=== PATIENT | female | born 1960 | race Caucasian/White ===

== ENCOUNTER 2023-07-01 10:11 | Emergency (ER) | payer BC ==
--- OUTSIDE RECORDS SUMMARY | 2023-07-01 10:16 | XMS REPORT | Continuity of Care Document ---
Author Name Unknown Address [address] [facility]. [address] [place] [id number] [facility] Address [address] [facility] 1 [address] [place] [address] Care Team Providers Care Machinery Dismantler Name Role Phone ANDREIA NINA Primary Care Physician Unav ailable JHOAN LYNN Attending Clinician Unavailable NAIDA TRAYLOR Attending Clinician Unavailable Jhoan Lynn MD Attending Clinician [phone] Gramm RESIDENTIAL PROPERTY TAX APPRAISERIndu Chino Attending Clinician [phone] INDU GALE Attending Clinician Unavailable LEÓN FALLON Attending Clinician Unavailable Doctor Unassigned, Halls Attending Clinician Jimy Nolan MD Attending Clinician + [phone] JIMY ARENAS Attending Clinician Andreia Villalpando Attending Clinician + [phone] ANDREIA NINA Attending Clinician Unavail able LOYDA LUX Attending Clinician Unavailable LOYDA LUX Attending Clinician Unavailable Loyda Lux DO Attending Clinician [phone] Pob, Adc Lab Main Attending Clinician Miguel Villeda MD Attending Clinician [phone] Pc, Adc Echo Room 1 - Attending Clinician MIGUEL Shields Attending Clinician Unavailable , Adc Lab Attending Clinician Unavailable Nurse, [facility] Attending Clinician Unava iltracie Unknown, Attending Attending Clinician Unavailab JIMY Rios Admitting Clinician ANDREIA Torres Admitting Clinician Unavail able Payers Payer Name Policy Type Policy Number Effective Date Expirati on Date Source [facility] [id number] 2017 00:00:00 Problems Condition Name Condition Details Condition Category Status Onset Date Resolution Date Last Treatment Date Treating Clinician Comments Source No known active problems No known active problems Disease [facility] Allergies, Adverse Reactions, Alerts Allergy Name Allergy Type Status Severity Reaction(s) Onset Date Inactive Date Treating Clinician Comments Source GATIFLOX ACIN DRUG INGREDI Active Rash 07-25 00:00: 00 [facility] Gatiflox acin Propensi ty to adverse reaction s Active Rash 07-25 00:00: 00 [facility] Social History Social Habit Start Date Stop Date Quantity Comments Source Exposure to SARS-CoV-2 (event) Not sure [facility] Sex Assigned At [facility] Tobacco use and exposure 2019-11-18 00:00:00 2019-11-18 00:00:00 Never used [facility] History SDOH Alcohol Frequency 2019-11-18 00:00:00 2019-11-18 00:00:00 3 [facility] History SDOH Alcohol Std Drinks 2019-11-18 00:00:00 2019-11-18 00:00:00 99 [facility] History SDOH Alcohol Binge 2019-11-18 00:00:00 2019-11-18 00:00:00 99 [facility] Alcohol intake 2019-11-18 00:00:00 2019-11-18 00:00:00 Current drinker of alcohol (finding) [facility] Smoking Status Start Date Stop Date Source Unknown if ever smoked [facility] Never smoker [facility] Medications Ordered Medication Name Filled Medication Name Start Date Stop Date Current Medication? Ordering Clinician Indication Dosage Frequency Signature (SIG) Comments Components Source iohexol (OMNIPAQUE 350 BULK-150 mL) injection 130 mL 11-04 18:30: 00 11-04 18:15 :00 No 130mL 130 mL, Intravenou s, ONCE, 1 dose, Anna 11/05/19 at 1330, Routine [facility] sincalide (KINEVAC) injection 1.4 mcg 09-09 14:15: 00 09-09 14:15 :00 No 1.4ug 1.4 mcg, IV Push, ONCE, 1 dose, Anna 09/10/19 at 0915, Routine [facility] tc 99m-mebrofe brent injection 9.5 millicurie 09-09 13:15: 00 09-09 13:00 :00 No 9.5mCi 9.5 millicurie , Intravenou s, ONCE, 1 dose, Anna 09/10/19 at 0815, Routine [facility] TRULANCE 3 mg Tab 08-31 00:00: 00 Yes [facility] TRULANCE 3 mg Tab 08-31 00:00: 00 Yes [facility] TRULANCE 3 mg Tab 08-31 00:00: 00 Yes [facility] TRULANCE 3 mg Tab 08-31 00:00: 00 Yes [facility] TRULANCE 3 mg Tab 08-31 00:00: 00 Yes [facility] contrast previously administere d 0 mL 08-12 15:15: 00 08-12 15:02 :00 No Intravenou s, ONCE, 1 dose, Anna 08/13/19 at 1015, Routine [facility] iohexol (OMNIPAQUE 350 BULK-150 mL) injection 120 mL 08-12 15:15: 00 08-12 15:02 :00 No 120mL 120 mL, Intravenou s, ONCE, 1 dose, Anna 08/13/19 at 1015, Routine [facility] No known medications No [facility] No known medications No [facility] No known medications No [facility] No known medications No [facility] No known medications No [facility] No known medications No [facility] No known medications No [facility] No known medications No [facility] No known medications No [facility] No known medications No [facility] No known medications No [facility] No known medications No [facility] No known medications No [facility] No known medications No [facility] No known medications No Un mo [facility] No known medications No [facility] No known medications No [facility] No known medications No Un mo [facility] No known medications No Un mo [facility] No known medications No Un mo [facility] No known medications No Un mo [facility] No known medications No Un mo [facility] No known medications No Un mo [facility] No known medications No Un mo [facility] No known medications No Un [facility] No known medications No Un mo [facility]y [facility] No known medications No Un mo [facility]y [facility] No known medications No Un mo [facility]y [facility] No known medications No Un mo [facility]y [facility] Vital Signs Vital Name Observation Time Observation Value Comments S ource Systolic blood pressure 2019-11-18 20:05:00 137 mm[Hg] [facility] Diastolic blood pressure 2019-11-18 20:05:00 76 mm[Hg] [facility] Heart rate 2019-11-18 20:05:00 68 /min [facility] Respiratory rate 2019-11-18 20:05:00 14 /min [facility] Body height 2019-11-18 20:05:00 167.6 cm [facility] Body weight 2019-11-18 20:05:00 74.481 kg [facility] BMI 2019-11-18 20:05:00 26.50 kg/m2 [facility] Oxygen saturation in Arterial blood by Pulse oximetry 2019-11-18 20:05:00 95 /min [facility] Systolic blood pressure 2019-10-06 15:43:00 143 mm[Hg] [facility] Diastolic blood pressure 2019-10-06 15:43:00 77 mm[Hg] [facility] Heart rate 2019-10-06 15:43:00 77 /min [facility] Body temperature 2019-10-06 15:38:00 36.83 Christine [facility] Body weight 2019-10-06 15:38:00 73.936 kg [facility] BMI 2019-10-06 15:38:00 26.31 kg/m2 [facility] Systolic blood pressure 2019-08-13 21:18:00 134 mm[Hg] [facility] Diastolic blood pressure 2019-08-13 21:18:00 70 mm[Hg] [facility] Heart rate 2019-08-13 21:18:00 62 /min [facility] Body height 2019-08-13 21:18:00 167.6 cm [facility] Body weight 2019-08-13 21:18:00 73.936 kg [facility] BMI 2019-08-13 21:18:00 26.31 kg/m2 [facility] Systolic blood pressure 2018-11-15 16:18:00 128 mm[Hg] [facility] Diastolic blood pressure 2018-11-15 16:18:00 82 mm[Hg] [facility] Heart rate 2018-11-15 16:18:00 96 /min [facility] Body temperature 2018-11-15 16:18:00 37.22 Christine [facility] Respiratory rate 2018-11-15 16:18:00 17 /min [facility] Body height 2018-11-15 16:18:00 167.6 cm [facility] Body weight 2018-11-15 16:18:00 70.478 kg [facility] BMI 2018-11-15 16:18:00 25.08 kg/m2 [facility] Oxygen saturation in Arterial blood by Pulse oximetry 2018-11-15 16:18:00 97 /min [facility] Procedures Procedure Date / Time Performed Performing Clinician Source CT ABDOMEN PELVIS W WO CONTRAST 2019-11-05 18:27:14 Indu Gale [facility] HB CREATININE BLOOD 2019-11-05 18:12:00 Indu Gale [facility] POCT URINALYSIS AUTO 2019-10-06 15:42:00 Indu Gale [facility] REFERRAL- REQUEST/RESPONSE 2019-09-23 05:01:00 Doctor Unassigned, Halls [facility] NM HEPATOBILIARY W INTERVENTION 2019-09-10 14:51:00 Jimy Arenas [facility] NM HEPATOBILIARY W INTERVENTION 2019-09-10 14:51:00 Jimy Arenas [facility] EXTERNAL PROVIDER - ADC REFERRAL 2019-09-09 05:01:00 Doctor Unassigned, Halls [facility] BI ULTRASOUND BREAST LIMITED BILATERAL 2019-09-08 18:56:32 Andreia Nina [facility] BI DIAGNOSTIC TOMOSYNTHESIS BILATERAL 2019-09-08 18:39:24 Andreia Nina [facility] AUTHORIZATION FOR RELEASE OF PHI 2019-09-06 05:01:00 Doctor Unassigned, Halls [facility] XR KNEE 3 VW RIGHT 2019-08-26 19:54:54 [facility] US HEAD NECK 2019-08-26 19:49:08 Andreia Nina [facility] XR CHEST 2 VW 2019-08-26 19:10:00 Andreia Nina [facility] EXTERNAL PROVIDER - ADC REFERRAL 2019-08-24 05:01:00 Doctor Unassigned, [place]s [facility] AUTHORIZATION FOR RELEASE OF PHI 2019-08-21 05:01:00 Doctor Unassigned, [place]s [facility] REFERRAL- REQUEST/RESPONSE 2019-08-19 05:01:00 Doctor Unassigned, Halls [facility] CT ABDOMEN PELVIS W WO CONTRAST 2019-08-13 15:10:01 Andreia Nina [facility] CT THORAX W CONTRAST 2019-08-13 15:07:49 Andreia Nina [facility] EXTERNAL PROVIDER - ADC REFERRAL 2019-08-10 05:01:00 Doctor Unassigned, Halls [facility] AMYLASE 2019-08-04 19:05:00 Andreia Nina [facility] LIPASE 2019-08-04 19:05:00 Andreia Nina [facility] FERRITIN SERUM 2019-08-04 19:05:00 Andreia Nina [facility] BILI UNCONJUGATED/BILI CONJUG 2019-08-04 19:05:00 Andreia Nina [facility] FREE T4 2019-08-04 19:05:00 Andreia Nina [facility] THYROID STIMULATING HORMONE 2019-08-04 19:05:00 Andreia Nina [facility] COMP. METABOLIC PANEL (71021) 2019-08-04 19:05:00 Andreia Nina [facility] SEDIMENTATION RATE 2019-08-04 19:05:00 Andreia Ninadell [facility] CBC WITH DIFFERENTIAL 2019-08-04 19:05:00 [facility] GLYCOSYLATED HEMOGLOBIN (A1C) 2019-08-04 19:05:00 Andreia Nina [facility] D-DIMER 2019-08-04 19:05:00 Andreia Nina [facility] URINALYSIS 2019-08-04 19:05:00 Andreia Nina [facility] US ABDOMEN COMPLETE 2019-08-04 18:41:10 Andreia Nina [facility] XR CHEST 2 VW 2019-08-04 18:04:46 Andreia Nina [facility] XR CERVICAL SPINE 2 2019-08-04 18:04:46 Joel Nina [facility] PATIENT FINANCIAL POLICY 2018-11-15 15:52:52 Doctor Unassigned, Halls [facility] Encounters Start Date/Time End Date/Time Encounter Type Admission Type Attending Clinicians Care Facility Care Department Encounter ID Source 2020-08-10 09:00:00 2020-08-10 09:00:00 Outpatient JHOAN LYNN [facility] [id number] [facility] 2020-08-05 08:30:00 2020-08-05 08:30:00 Outpatient JHOAN PALMER [facility] [id number] [facility] 2019-12-24 13:30:00 2019-12-24 13:30:00 [id number] 2019-11-18 14:32:07 2019-11-18 16:01:25 Office Visit [facility] 1..840.114 350.1.13.10 4.2.7.2.[id number] [facility] 2019-11-18 15:00:00 2019-11-18 15:00:00 Outpatient R LEAH [facility] [id number] [facility] 2019-11-06 08:00:00 2019-11-06 08:00:00 [id number] [facility] 2019-11-05 12:43:09 2019-11-05 23:59:00 Hospital Encounter Indu Gale [facility] 1.2.840.114 350.1.13.10 4.2.7.2.[id number] [facility] 2019-11-05 00:00:00 2019-11-05 00:00:00 Outpatient R INDU GALE [facility] [id number] [facility] 2019-11-03 15:40:00 2019-11-03 15:40:00 Outpatient R LEÓN FALLON [facility] [id number] [facility] 2019-10-16 00:00:00 2019-10-16 00:00:00 Outpatient R INDU GALE [facility] [id number] [facility] 2019-10-08 08:20:00 2019-10-08 08:20:00 Outpatient R LEÓN FALLON [facility] [id number] [facility] 2019-10-06 10:11:34 2019-10-06 10:45:00 Office Visit Indu Gale [facility] 1.0.114 350.1.13.10 4.2.7.2.[id number] [facility] 2019-10-06 10:00:00 2019-10-06 10:00:00 Outpatient R INDU GALE [facility] [id number] [facility] 2019-09-23 00:00:00 2019-09-23 00:00:00 Orders Only Doctor Unassigned, Halls [facility] 1..114 350.1.13.10 4.2.7.2.[id number] [facility] 2019-09-16 14:00:00 2019-09-16 14:00:00 Outpatient R SHARA GALEELA [facility] [id number] [facility] 2019-09-10 07:43:00 2019-09-10 23:59:00 Hospital Encounter Jimy Tobias [facility] 1..114 350.1.13.10 4.2.7.2.[id number] [facility] 2019-09-10 07:42:49 2019-09-10 07:42:00 Outpatient R JIMY TOBIAS [facility] [id number] [facility] 2019-09-10 07:42:00 2019-09-10 07:42:00 Hospital Encounter Jimy Tobias [facility] 1..114 350.1.13.10 4.2.7.2.[id number] [facility] 2019-09-09 00:00:00 2019-09-09 00:00:00 Orders Only Doctor Unassigned, Halls [facility] 1.20.114 350.1.13.10 4.2.7.2.[id number] [facility] 2019-09-08 12:51:00 2019-09-08 23:59:00 Hospital Encounter Andreia Nina [facility] 1.2.840.114 350.1.13.10 4.2.7.2.[id number] [facility] 2019-09-08 12:50:25 2019-09-08 12:50:00 Outpatient R ANDREIA NINA [facility] [id number] [facility] 2019-09-08 12:50:00 2019-09-08 12:50:00 Hospital Encounter Andreia Nina [facility] 1.2840.114 350.1.13.10 4.2.7.2.[id number] [facility] 2019-09-06 00:00:00 2019-09-06 00:00:00 Orders Only Doctor Unassigned, Halls [facility] 1.2.840.114 350.1.13.10 4.2.7.2.[id number] [facility] 2019-08-28 14:00:00 2019-08-28 14:00:00 Outpatient R LOYDA LUX SHIPAPetra [facility] [id number] [facility] 2019-08-28 08:21:19 2019-08-28 08:41:19 Telemedici ne Visit Loyda Lux [facility] Professio [facility] Building 1.2840.114 350.1.13.10 4.2.7.2.[id number] [facility] 2019-08-26 13:50:00 2019-08-26 23:59:00 [facility] 1.2840.114 350.1.13.10 4.2.7.2.[id number] [facility] 2019-08-26 13:55:36 2019-08-26 14:10:36 Case Maker Visit Pob, Adc Lab Main Andreia Nina [facility] Building 1.2.840.114 350.1.13.10 4.2.7.2.[id number] [facility] 2019-08-26 13:49:10 2019-08-26 13:49:00 Outpatient R ANDREIA NINA [facility] [id number] [facility] 2019-08-26 13:49:00 2019-08-26 13:49:00 Hospital Encounter Andreia Nina [facility] 1.2.840.114 350.1.13.10 4.2.7.2.[id number] [facility] 2019-08-26 13:49:00 2019-08-26 13:49:00 Hospital Encounter Andreia Nina [facility] 1.2.840.114 350.1.13.10 4.2.7.2.[id number] [facility] 2019-08-24 00:00:00 2019-08-24 00:00:00 Orders Only Doctor Unassigned, Halls [facility] 1.2.840.114 350.1.13.10 4.2.7.2.[id number] [facility] 2019-08-21 00:00:00 2019-08-21 00:00:00 Telephone Miguel Fung [facility] Building 1.2.840.114 350.1.13.10 4.2.7.2.[id number] [facility] 2019-08-21 00:00:00 2019-08-21 00:00:00 Orders Only Doctor Unassigned, Halls [facility] 1.2.840.114 350.1.13.10 4.2.7.2.[id number] [facility] 2019-08-19 00:00:00 2019-08-19 00:00:00 Orders Only Doctor Unassigned, Halls [facility] 1.2.840.114 350.1.13.10 4.2.7.2.[id number] [facility] 2019-08-13 07:52:00 2019-08-13 23:59:00 Hospital En[facility] 1.2.840.114 350.1.13.10 4.2.7.2.[id number] [facility] 2019-08-13 17:01:06 2019-08-13 17:16:06 Case Maker Visit Pob, Adc Lab Main [facility] 1.2.840.114 350.1.13.10 4.2.7.2.[id number] [facility] 2019-08-13 15:50:04 2019-08-13 16:43:46 Laboratory Only Pc, Ad[facility] 1.2840.114 350.1.13.10 4.2.7.2.[id number] [facility] 2019-08-13 07:50:52 2019-08-13 07:51:00 Outpatient R ANDREIA NINA [facility] [id number] [facility] 2019-08-13 07:50:00 2019-08-13 07:51:00 Hospital Encounter Andreia Nina [facility] 1.2.840.114 350.1.13.10 4.2.7.2.[id number] [facility] 2019-08-11 00:00:00 2019-08-11 00:00:00 [facility] 1.2.840.114 350.1.13.10 4.2.7.2.[id number] [facility] 2019-08-10 00:00:00 2019-08-10 00:00:00 Orders Only Doctor Unassigned, Halls [facility] 1.2.840.114 350.1.13.10 4.2.7.2.[id number] [facility] 2019-08-05 13:20:00 2019-08-05 13:20:00 [id number] 2019-08-05 09:25:23 2019-08-05 09:45:23 [facility] 1.2.840.114 350.1.13.10 4.2.7.2.[id number] [facility] 2019-08-04 12:42:00 2019-08-04 14:05:00 Hospital Encounter Andreia Nina [facility] 1.2.840.114 350.1.13.10 4.2.7.2.[id number] [facility] 2019-08-04 12:35:59 2019-08-04 12:50:59 Case Maker Visit 1, Adc Lab Andreia Nina [facility] 1.2.840.114 350.1.13.10 4.2.7.2.[id number] [facility] 2019-08-04 12:35:36 2019-08-04 12:39:00 Outpatient R ANDREIA NINA [facility] [id number] [facility] 2019-08-04 12:35:00 2019-08-04 12:39:00 Hospital Encounter Andreia Nina [facility] 1.2.840.114 350.1.13.10 4.2.7.2.[id number] [facility] 2018-11-15 11:14:44 2018-11-15 11:29:44 Nurse Visit Nurse, [facility] Unknown, Attending [facility] Pearl 1.2840.114 350.1.13.10 4.2.7.2.[id number] [facility] 2018-11-15 00:00:00 2018-11-15 00:00:00 Orders Only Doctor Unassigned, Halls [facility] 1.2.840.114 350.1.13.10 4.2.7.2.[id number] [facility] Results Test Description Test Time Test Comments Results Result Co [facility]ments [facility] [id number] 18:36:05CT Abdomen and Pelvis without and with intravenous contrast (CT urogramprotocol). CLINICAL HISTORY:Hematuria, known cause. DOSE: Up-to-date CT equipment and radiation dose reduction techniques wereemployed. CTDIvol: 7.74+7.70 mGy. DLP: 382+392 mGy-cm. TECHNIQUE : Contiguous axial imaging from the level of the lung basesthrough the pubic symphysis were performed initially without contrast andsubsequently after the uncomplicated administration of Omnipaque contrastmaterial (CT urogram protocol).Coronal and sagittal reconstructions wereobtained. Auto mA and/or iterative reconstruction were used to reduceradiation dose. FINDINGS: Comparison has been made with 08/13/2019 CT studies. Lower lungs: Clear. Liver, Gallbladder and Spleen: Liver is 14 cm and spleen is 9.5 x 3.8 cm.No focal lesions detected in the liver or in the spleen. No calcifiedgallstones. Normal size biliary ducts and the pancreatic duct. Peritoneum: ?No free air or free fluid. No lymphadenopathy. Pancreas and Adrenals: ?Unremarkable pancreas and adrenal glands. Kidneys and Ureters: ?No visible calculi in the renal collecting systems. No hydroureter or hydronephrosis.Deformity in the lateral cortex at interpolar left kidney could be due toremote ischemia. 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 Milddilatation of the left kidney's collecting system and ureters noted withoutany apparent cause in this examination. Vessels: Minimal atherosclerosis in the abdominal aorta. Retroperitoneum: No abnormal fluid or lymphadenopathy. Bowel: No acute findings. Appendix is not visualized, however, no signs ofacute appendicitis detected. Bladder and Reproductive Organs: S/P hysterectomy. No adnexal masses orfluid in the cul-de-sac. Urinary bladder appears normal. Bones: Prominent Schmorl's node in the lower plate of L4, shallow Schmorl'snode inthe upper plate of L5. Mild lower lumbar facet arthritis andbilateral sacroiliac joint arthritis. Soft tissues: Unremarkable. CONCLUSION:1. No kidney stones or kidney lesions. No lesions in the urinary bladder.2. Cortical scar in the left kidney could be due to remote ischemia. Milddilatation of the left kidney's collecting system and left ureters notedwithout any apparent cause in this examination.3. S/P hysterectomy. [facility], Radiant Results Inft User - 11/05/2019 1:37 PM CDTCT Abdomen and Pelvis without and with intravenous contrast (CT urogramprotocol).CLINICAL HISTORY: Hematuria, known cause.DOSE: Up-to-date CT equipment and radiation dose reduction techniques wereemployed. CTDIvol: 7.74+7 .70 mGy. DLP: 382+392 mGy-cm.TECHNIQUE : Contiguous axial imaging from the level of the lung basesthrough the pubic symphysis were performed initially without contrast andsubsequently after the uncomplicated administration of Omnipaque contrastmaterial (CT urogram protocol). Coronal and sagittal reconstructions wereobtained. Auto mA and/or iterative reconstruction were used to reduceradiation dose.FINDINGS: Comparison has been made with 08/13/2019 CT studies.Lower lungs: Clear.Liver, Gallbladderand Spleen: Liver is 14 cm and spleen is 9.5 x 3.8 cm.No focal lesions detected in the liver or in the spleen. No calcifiedgallstones. Normal size biliary ducts and the pancreatic duct.Peritoneum: Nofree air or free fluid. No lymphadenopathy.Pancreas and Adrenals: Unremarkable pancreas and adrenalglands.Kidneys and Ureters: No visible calculi in the renal collecting systems. No hydroureter or hy dronephrosis.Deformity in the lateral cortex at interpolar left kidney could be due toremote ischemia. 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 Milddilatation of the left kidney's collecting system and ureters noted withou anali apparent cause in this examination. Vessels: Minimal atherosclerosis in the abdominal aorta.Retroperitoneum: No abnormal fluid or lymphadenopathy.Bowel: No acute findings. Appendix is not visualized, however, no signs ofacute appendicitis detected.Bladder and Reproductive Organs: S/P hysterectomy. No adnexal masses orfluid in the cul-de-sac. Urinary bladder appears normal.Bones: Prominent Schmorl's node in the lower plate of L4, shallow Schmorl'snode in the upper plate of L5. Mild lower lumbar facet arthritis andbilateral sacroiliac joint arthritis.Soft tissues: Unremarkable.CONCLUSION:1. No kidney stones or kidney lesions. No lesions in the urinary bladder.2. Cortical scar in the left kidney could be due to remote ischemia. Milddilatation of the left kidney's collecting system and left ureters notedwithout any apparent cause in this examination.3. S/P hysterectomy.[facility] URINALYSIS, [id number] 15:43:00* Test Item Value Reference Range Interpretation Comme nts POCT U SP GRAV (test code = 3255) 1.020 mg/dl 1.005-1.025 POCT PH U (test code = 3254) 7.0 mg/dl 5-8 POCT U LEUK EST (test code = 3263) Trace Negative - Negative POCT U NIT (test code = 3262) Negative Negative - Negati ve POCT U PROT (test code = 3259) Negative Negative - Negative POCT U GLU (test code = 3256) Negative Negative - Negati ve POCT U KETONE (test code = 3258) Negative Negative - Negative POCT U UROBILI (test code = 3260) 1.0 mg/dl 0.2-1 POCT U BILI (test code = 3261) Negative Negative - Negative POCT U BLD (test code = 3257) small Negative - Negati ve POCT U COLOR (test code = 3266) yellow POCT U APPEAR (test code = 3267) clear Lab Interpretation (test cod e = 73571-1) [facility] [id number] 15:43:00 * Test Item Value Reference Range Interpretation Comme nts POCT U SP GRAV (test code = 3255) 1.020 mg/dl 1.005-1.025 POCT PH U (test code = 3254) 7.0 mg/dl 5-8 POCT U LEUK EST (test code = 3263) Trace Negative - Negative POCT U NIT (test code = 3262) Negative Negative - Negati ve POCT U PROT (test code = 3259) Negative Negative - Negative POCT U GLU (test code = 3256) Negative Negative - Negati ve POCT U KETONE (test code = 3258) Negative Negative - Negative POCT U UROBILI (test code = 3260) 1.0 mg/dl 0.2-1 POCT U BILI (test code = 3261) Negative Negative - Negative POCT U BLD (test code = 3257) small Negative - Negati ve POCT U COLOR (test code = 3266) yellow POCT U APPEAR (test code = 3267) clear Lab Interpretation (test cod e = [id number]) Abnormal [facility] HEPATOBILIARY W [id number] 17:16:19HISTORY: Recurrent abdominal/Epigastric pain. Rule out gallbladderdysfunction or cystic duct dyskinesia. TECHNIQUE: Routine hepatobiliary scan is obtained with 9.5 mCi oftechnetium 99m mebrofenin. CCK study is completed with slow intravenousinjection of 1.4 mcg of CCK. FINDINGS: Flow images and planar images of the liver appear normal. Bileducts begin to visualize within 7 minutes, duodenum within 9 minutes. Gallbladder is very poorly visualized even up to delayed imaging at 90minutes. Gallbladder contraction is hyper normal with CCK stimulation and GB EF is86 %. Patient complained of no painprior to or during CCK study. CONCLUSIONS: 1.Delayed and very poor visualization of the gallbladder. 2.GBEF with CCK stimulation is 86%. 3.Patient indicated no clinical symptoms prior to beginning ofthe HIDAscan or during CCK infusion. [facility], Radiant Results Inft User - 09/10/2019 12:17 PM CDTHISTORY: Recurrent abdominal/Epigastric pain. Rule out gallbladderdysfunction or cystic duct dyskinesia.TECHNIQUE: Routine hepatobiliary scan is obtained with 9.5 mCi oftechnetium 99m mebrofenin. CCK studyis completed with slow intravenousinjection of 1.4 mcg of CCK.FINDINGS: Flow images and planar images of the liver appear normal. Bileducts begin to visualize within 7 minutes, duodenum within 9 minutes.Gallbladder is very poorly visualized even up to delayed imaging at 90minutes. Gallbladder contraction is hyper normal with CCK stimulation and GB EF is86 %. Patient complained of no pain prior ge during CCK study.CONCLUSIONS: 1.Delayed and very poor visualization of the gallbladder. 2.GBEF with CCK stimulation is 86%. 3.Patient indicated no clinical symptoms prior to beginning of the HIDAscan or during CCK infusion.[facility] DIAGNOSTIC TOMOSYNTHESIS [id number] 19:36:34 Examination:BI DIAGNOSTIC TOMOSYNTHESIS BILATERAL History:Patient is 58 year old and is seen for: ?Abnormal findings on diagnostic imaging of breast patient states last mammogram was done over 15 yrsago in [facility] . Computer-aided detection (CAD) utilized. Comparisons : None available Findings:The breasts have scattered areas of fibroglandular density. LeftThere is a focal asymmetry seen in thelower inner quadrant of the left breast at 4 o'clock in the middle depth, 5.2 cm from the nipple. RightThere is a focal asymmetry seen in the upper inner quadrant of the right breast at 1 o'clock in the middle depth, 5.5 cm from the nipple. Impression:Prominent asymmetrical density in both breasts.Ultrasound study of upper inner RIGHT and lower inner LEFT breast recommended. Recommendation:Ultrasound - RightUltrasound - Left BI-RADS Category: Left: 0 - Incomplete: Needs Additional Imaging EvaluationRight: 0 - Incomplete: Needs Additional Imaging EvaluationOverall: 0 - Incomplete: Needs Additional Imaging EvaluationUnMer[facility] ULTRASOUND BREAST LIMITED [id number] 19:29:50Examination:BI ULTRASOUND BREAST LIMITED BILATERAL History:Patient is 58 year old and is seen for: ?Abnormal findings on diagnostic imaging of breast ?patient states last mammogram was done over 15 yrs ago in [facility] . ? Comparisons : None available HISTORY: ?Abnormal mammogram. TECHNIQUE: Upper-outer quadrant of the left breast as well as upper inner quadrant of the right breast were evaluated in radial/antiradial/sagittal/coronal planes both by the technologist and by me. Female technologistwas present in the room during all imaging evaluations. FINDINGS: Asymmetrical accumulation of dense fibroglandular breast tissue was detected in the upper inner right breast and lower outer left breast No discrete solid or cystic mass detected by myself or by the technologist evaluation. CONCLUSIONS: No masses detected. Images were reviewed and findings were discussed with the patient. Annual bilateral mammography evaluation is appropriate. ACR classification: Category II.Recommendation:Annualmammographic follow-up - Bilateral ? BI-RADS Category: Both 2 [facility] [id number] 20:17:59Multiple bilateral solid nodules measuring up to 1.0 cm in the left sidewith multiple foci of calcification consistent with TI-RADS 4, requiringannual follow based on ACR TI-RADS Guidelines. --------- ACR TI- RADS recommendations* ?TR5 (?7 points) -FNA if >/= ?1cm, follow-up if 0.5 -0.9 cm every yearfor 5 years* ?TR4 (4-6 points) -FNA if >/= 1.5cm, follow-up if 1 - 1.4 cm in 1, 2, 3and 5 years* ?TR3 (3 points)-FNA if >/= 2.5cm, follow-up if 1.5 -2.4 cm in 1, 3 and 5years* ?TR2 (2 points) & TR1 (0 points) -No FNAor follow- up Preliminary Report Dictated by Resident: Prem Ruff MD., have reviewed this study and agree with the abovereport.US HEAD NECKTHYROID ULTRASOUND ACR TI-RADS INDICATION: Nontoxic single thyroid nodule Received faxed orders for Thyroid ultrasound COMPARISON: None TECHNIQUE: Ultrasound examination of the thyroid and adjacent soft tissueswas performed. FINDINGS: The thyroid gland is slightly enlarged with homogeneous echotexture andmildly increased color Doppler flow.The isthmus measures 0.2 cm. The right thyroid lobe measures 5.0 x 1.7 x 2.1 cm (9.5 mL). ?The left thyroid lobe measures 4.8 x 1.4 x 1.3 cm (5.0 mL). ? Estimated total number of nodules >/= 1cm: 2 . Number of spongiform nodules >/= 2cm not described below (TR1): 0.Number of mixed cystic and solid nodules >/= 1.5cm not described below(TR2): 0 . Nodule#: 1* ?Maximum size: 1.1 cm.* ?Location: Mid - Right thyroid lobe .* ?Composition: Solid/almost completely solid (2) .* ?Echogenicity: Hyperechoic (1) .* ?Shape: Not taller than wide (0) .* ?Margins: Smooth (0) .* ?Echogenic foci: None(0) . * ?ACR TI- RADS total points: 3 .* ?ACR TI-RADS risk category: TR 3 (3 points) .* ?ACR TI-RADSrecommendation: No further follow-up. Nodule#: 2* ?Maximum size: 0.8 cm* ?Location: Lower - Right thyroid lobe* ?Composition: Solid/almost completely solid (2)* ?Echogenicity: Hypoechoic (2) .* ?Shape: Not taller than wide (0)* ?Margins: Ill defined (0)* ?Echogenic foci: None (0) * ?ACR TI-RADS total points: 4 ? * ?ACR TI-RADS risk category: TR 4 (4-6 points)* ?ACR TI-RADS recommendation: No further follow-up. Nodule#: 3* ?Maximum size: 1.0 cm* ?Location: Upper - Left thyroid lobe* ?Composition: Solid/almost completely solid (2)* ?Echogenicity: Isoechoic (1) .* ?Shape: Not taller than wide (0)* ?Margins: Ill defined (0)* ?Echogenic foci: Punctate echogenic foci (3) * ?ACR TI-RADS total points: 6 ? * ?ACR TI-RADS risk category: TR 4 (4-6 points)* ?ACR TI-RADS recommendation: Follow-up ultrasound in 1 year. Nodule#: 4* ?Maximum size: 1.0 cm* ?Location: Lower - Left thyroid lobe* ?Composition: Solid/almost completely solid (2)* ?Echogenicity: Hypoechoic (2) .* ?Shape: Not taller than wide (0)* ?Margins: Ill defined (0)* ?Echogenic foci: None (0) * ?ACR TI-RADS total points: 4 ? * ?ACR TI-RADS risk category: TR 4 (4-6 points)* ?ACR TI-RADS recommendation: Follow-up ultrasound in 1 year. Additional bilateral cystic subcentimeter nodules are seen likelyrepresenting colloid cysts. LYMPH NODES: Bilateral morphologically normal lymph nodes are notedmeasuring up to 1.0 cm in long axis on the right side and 1.7 cm in longaxis on the left side. [facility], Radiant Results Inft User - 08/26/2019 3:19 PM CDTUS HEAD NECKTHYROID ULTRASOUND ACR TI-RADSINDICATION: Nontoxic single thyroid nodule Received faxed orders for Thyroid ultrasound COMPARISON: NoneTECHNIQUE: Ultrasound examination of the thyroid and adjacent soft tissueswas performed.FINDINGS:The thyroid gland is slightly enlarged withhomogeneous echotexture andmildly increased color Doppler flow.The isthmus measures 0.2 cm. The right thyroid lobe measures 5.0 x 1.7 x 2.1 cm (9.5 mL). The left thyroid lobe measures 4.8 x 1.4 x 1.3cm (5.0 mL). Estimated total number of nodules >/= 1cm: 2 . Number of spongiform nodules >/= 2cm not described below (TR1): 0.Number of mixed cystic and solid nodules >/= 1.5cm not describedbelow(TR2): 0 .Nodule#: 1* Maximum size: 1.1 cm.* Location: Mid - Right thyroid lobe .* Composition: Solid/almost completely solid (2) .* Echogenicity: Hyperechoic (1) .* Shape: Not taller than wide (0) .* Margins: Smooth (0) .* Echogenic foci: None (0) .* ACR TI-RADS total points: 3 .* ACR TI-RADSrisk category: TR 3 (3 points) .* ACR TI-RADS recommendation: No further follow-up.Nodule#: 2* Maximum size: 0.8 cm* Location: Lower - Right thyroid lobe* Composition: Solid/almost completely solid (2)* Echogenicity: Hypoechoic (2) .* Shape: Not taller than wide (0)* Margins: Ill defined (0)* Echogenic foci: None (0)* ACR TI-RADS total points: 4 * ACR TI-RADS risk category: TR 4 (4-6 points)* ACR TI-RADS recommendation: No further follow-up.Nodule#: 3* Maximum size: 1.0 cm* Location: Upper - Left thyroid lobe* Composition: Solid/almost completely solid (2)* Echogenicity: Isoechoic (1) .* Shape: Not taller than wide (0)* Margins: Ill defined (0)* Echogenic foci: Punctate echogenic foci (3)*ACR TI-RADS total points: 6 * ACR TI-RADS risk category: TR 4 (4-6 points)* ACR TI-RADS recommendation: Follow-up ultrasound in 1 year.Nodule#: 4* Maximum size: 1.0 cm* Location: Lower - Left thyroidlobe* Composition: Solid/almost completely solid (2)* Echogenicity: Hypoechoic (2) .* Shape: Not taller than wide (0)* Margins: Ill defined (0)* Echogenic foci: None (0)* ACR TI-RADS total points: 4* ACR TI-RADS risk category: TR 4 (4-6 points)* ACR TI-RADS recommendation: Follow-up ultrasound in1 year.Additional bilateral cystic subcentimeter nodules are seen likelyrepresenting colloid cysts.LYMPH NODES: Bilateral morphologically normal lymph nodes are notedmeasuring up to 1.0 cm in long axis on the right side and 1.7 cm in longaxis on the left side.IMPRESSIONMultiple bilateral solid nodules measuring up to 1.0 cm in the left sidewith multiple foci of calcification consistent with TI-RADS 4, requiringannual follow based on ACR TI-RADS Guidelines. ACR TI-RADS recommendations* TR5 (?7 points) -FNA if >/=1cm, follow-up if 0.5 -0.9 cm every yearfor 5 years* TR4 (4-6 points) -FNA if >/= 1.5cm, follow-up if 1 -1.4 cm in 1, 2, 3and 5 years* TR3 (3 points)-FNA if >/= 2.5cm, follow-up if 1.5 -2.4 cm in 1, 3 and 5years* TR2 (2 points) & TR1 (0 points) -No FNA or follow-upPreliminary Report Dictated by Resident: Prem Galan MD., have reviewed this study and agree with the abovereport.[facility]XR [facility] 3 [facility] RIGHT 2019-08-26 20:11:56Mild osteoarthrosis EXAM: Right knee 3 views HISTORY: Effusion of knee, unspecified laterality spoke with armand she specified right knee ?Received faxed orders for knee xray ?.spoke with physician nina she specified right knee TECHNIQUE:AP, lateral, oblique view of the right knee is obtained. FINDINGS:No acute fracture or dislocation is seen. Minimal narrowing of themedial and patellofemoral joint is seen. No bone lesion is seen. Softtissues are normal. No suprapatellar joint effusion is suspected. [facility], Radiant Results Inft User - 08/26/2019 3:13 PM CDTEXAM: Right knee 3 viewsHISTORY: Effusion of knee, unspecified laterality spoke with armand she specified right knee Received faxed orders for knee xray .spoke with physician nina she specified right knee TECHNIQUE:AP, lateral, oblique view of the right knee is obtained.FINDINGS:No acute fracture or dislocation is seen. Minimal narrowing of themedial and patellofemoral joint is seen. No bone lesion is seen. Softtissues are normal. No suprapatellar joint effusion is suspected.IMPRESSIONMild osteoarthrosisUnCorpus Christi Medical Center Bay AreaXR CHEST 2 [id number] 20:10:51No acute cardiopulmonary disease. CHEST 2 VIEWS: HISTORY: Multiple lung nodules Received faxed orders for chest 2 views; TECHNIQUE:: ?PA and lateral views of the chest are obtained. COMPARISON: October 04, 2019 FINDINGS: The lungs are hyperinflated but clear. The heart size andmediastinal silhouette are normal. No pleural effusion or pneumothorax isseen. [facility], Radiant Results Inft User - 08/26/2019 3:11 PM CDTCHEST 2 VIEWS:HISTORY: Multiple lung nodules Received faxed orders for chest 2 views;TECHNIQUE:: PA and lateral views of the chest are obtained.COMPARISON: October 04, 2019FINDINGS: The lungs are hyperinflated but clear. The heart size andmediastinal silhouette are normal. No pleural effusion or pneumothorax isseen.IMPRESSIONNo acute cardiopulmonary disease.[facility] CenterCT ABDOMEN PELVIS W WO [id number] 15:24:54CT Abdomen and Pelvis with oral and with intravenous contrast. CLINICAL HISTORY: No clinical history is available. DOSE: Up-to-date CT equipment and radiation dose reduction techniques wereemployed. CTDIvol: 0.38+4.45+8.32 mGy. DLP: 410+163+406 mGy-cm. TECHNIQUE : Contiguous axial imaging from the level of the lung basesthrough the pubic symphysis were performed initially using only oralcontrast medium and subsequently after the uncomplicated administration ofOmnipaque contrast material. Coronal and sagittal reconstructions wereobtained. Auto mA and/or iterative reconstruction were used to reduceradiation dose. FINDINGS: ? Lower lungs: Clear. Possible short sliding hiatal hernia. Liver, Gallbladder and Spleen: Liver is 14.5 cm and appears normal. Spleenmeasures approximately 9.5 x 3.6 cm.No calcified gallstones. Biliary ductsand the pancreatic duct appear of normal size. Peritoneum: ?No free air or free fluid. No lymphadenopathy. Pancreas and Adrenals: ?Unremarkable pancreas and right adrenal gland. Mildnonspecific left adrenal gland hypertrophy noted. Kidneys and Ureters: ?No visible calculi in the renal collecting systems. No hydroureter or hydronephrosis. Deformity in the anterior cortex of the interpolar left kidney is likelysecondary to remote ischemia. Mild fullness notedin both kidneyscollecting system and ureters, slightly more on the left side without anyobstructingstone. Vessels: Normal. Retroperitoneum: No abnormal fluid or lymphadenopathy. Bowel: No acute findings. Retained fecal material noted predominantly inthe right side and large bowel up to the descending colon. Milddiverticulosis is noted in the proximal sigmoid and distal descending colonwithout any acute changes of diverticulitis. Bladder and Reproductive Organs: S/P hysterectomy. Urinary bladder is notopacified by the intravenously injected contrast medium. No gross pathologydetected in the underdistended and unopacified urinary bladder. Bones: Hemangioma noted in L1, L5 and lower thoracic vertebral bodies.Prominent Schmorl's node is seen in the lower plate of L4, likely secondaryto remote axial loading trauma. Soft tissues: Unremarkable. CONCLUSION: No acute findings detected in CT scan of abdomen and pelvis. [facility], Radiant Results Inft User - 08/13/2019 10:26 AM CDTCT Abdomen and Pelvis with oral and with intravenous contrast.CLINICAL HISTORY: No clinical history is available.DOSE:Up-to-date CT equipment and radiation dose reduction techniques wereemployed. CTDIvol: 0.38+4.45+8.32 mGy. DLP: 410+163+406 mGy-cm.TECHNIQUE : Contiguous axial imaging from the level of the lung basesthrough the pubic symphysis were performed initially using only oralcontrast medium and subsequently after the uncomplicated administration ofOmnipaque contrast material. Coronal and sagittal reconstructions wereobtained. Auto mA and/or iterative reconstruction were used to reduceradiation dose.FINDINGS: Lower lungs: Clear. Possible short sliding hiatal hernia.Liver, Gallbladder and Spleen: Liveris 14.5 cm and appears normal. Spleenmeasures approximately 9.5 x 3.6 cm. No calcified gallstones. Biliary ductsand the pancreatic duct appear of normal size.Peritoneum: No free air or free fluid. Nolymphadenopathy.Pancreas and Adrenals: Unremarkable pancreas and right adrenal gland. Mildnonspecific left adrenal gland hypertrophy noted.Kidneys and Ureters: No visible calculi in the renal collecting systems. No hydroureter or hydronephrosis. Deformity in the anterior cortex of the interpolar left kidney is likelysecondary to remote ischemia. Mild fullness noted in both kidneyscollecting system and ureters, slightly more on the left side without anyobstructing stone. Vessels: Normal.Retroperitoneum: No abnormal fluid or lymphadenopathy.Bowel: No acute findings. Retained fecal material noted predominantly inthe right side and large bowel up to the descending colon. Milddiverticulosis is noted in the proximal sigmoid and distal descending colonwithout any acute changes of diverticulitis.B ladder and Reproductive Organs: S/P hysterectomy. Urinary bladder is notopacified by the intravenously injected contrast medium. No gross pathologydetected in the underdistended and unopacified urinary bladder.Bones: Hemangioma noted in L1, L5 and lower thoracic vertebral bodies.Prominent Schmorl'snode is seen in the lower plate of L4, likely secondaryto remote axial loading trauma.Soft tissues:Unremarkable.CONCLUSION: No acute findings detected in CT scan of abdomen and pelvis.[facility] CenterCT THORAX W [id number] 15:19:53HISTORY: No clinical history available. TECHNIQUE: Contrast-enhanced 64-mutidetector CT [facility] wascompleted with intravenous injection of ?Omnipaque-350 non ionic contrastmedium. Subsequently numerous sagittal, coronal and MIP reformations weregenerated. FINDINGS: Visualized portions of the thyroid gland showed smallsubcentimeter bilateral nodules. Trachea and central bronchial airwaysappear normal. No acute pulmonary thromboembolism detected. Small cluster of 4 mm orsmaller size nodular densities are seen in the anterior right upper lung(6:51). This is of uncertain etiology but could be nonspecific subclinicalpulmonary infection. No pleural or pericardial effusion, pneumothoraxor pneumomediastinum. Noaortic aneurysm or dissection. Small lymph nodes are seen in the rightsuprahilar region, subcarinal space, anterior to the trachea and in APwindow region. No enlarged lymph nodes visualized.No significant coronary atherosclerosis. No aortic aneurysm or aorticdissection. No aggressive bone lesions. Note made of hemangioma in L1, T12, T10, T9, U5itungwttj bodies. No compression fractures seen in the thoracic spines.Mild mid thoracic dextroscoliosis noted. CONCLUSIONS:1. Cluster of small nodules in anterior right upper lung is nonspecific butcould be secondary to subclinical pulmonary infection.2. Short sliding hiatal hernia noted, otherwise unremarkablecontrast-enhanced CT scan of chest.3. Asymmetrical density is seen in the lower outer quadrant of left breast.If thepatient has not had mammography evaluation in last one year, presentcould raise the patient for bilateral mammography.4. Subcentimeter nodules are suspected in the thyroid gland. For completeevaluation, thyroid ultrasound study should be obtained. [facility], Radiant Results Inft User - 08/13/2019 10:20 AM CDTHISTORY: No clinical history available.TECHNIQUE: Contrast-enhanced 64-mutidetector CT scan ofthe chest wascompleted with intravenous injection of Omnipaque-350 non ionic contrastmedium. Subsequently numerous sagittal, coronal and MIP reformations weregenerated.FINDINGS: Visualized portions of the thyroid gland showed smallsubcentimeter bilateral nodules.Trachea and central bronchial airways appear normal.No acute pulmonary thromboembolism detected. Small cluster of 4 mm orsmaller size nodular densities are seen in the anterior right upper lung(6:51). This is of uncertain etiology but could be nonspecific subclinicalpulmonary infection.No pleural or pericardial effusion, pneumothorax or pneumomediastinum. Noaortic aneurysm or dissection. Small lymph nodes are seen in the rightsuprahilar region, subcarinal space, anterior to the trachea and in APwindow region. No enlarged lymph nodes visualized.No significant coronary atherosclerosis. No aortic aneurysm or aorticdissection.No aggressive bone lesions. Note made of hemangioma in L1, T12, T10, T9, [id number] bodies. No compression fractures seen in the thoracic spines.Mild mid thoracic dextroscoliosis noted.CONCLUSIONS:1. Cluster of small nodules in anterior right upper lung is nonspecific butcould be secondary to subclinicalpulmonary infection.2. Short sliding hiatal hernia noted, otherwise unremarkablecontrast- enhanced CT scan of chest.3. Asymmetrical density is seen in the lower outer quadrant of left breast.If the patient has not had mammography evaluation in last one year, presentcould raise the patient for bilateral mammography.4. Subcentimeter nodules are suspected in the thyroid gland. For completeevaluation,thyroid ultrasound study should be obtained.[facility] CenterFERRITIN [id number] 20:33:00* Test Item Value Reference Range Interpretation Comme nts FERRITIN (test code = 0104952686) 33.1 ng/mL 11-264 VINNY (test code = VINNY) Biotin has been reported to cause a negative bias, interpret results relative to patient's use of biotin. Lab Interpretation (test code = 02171-4) [facility] CenterTHY[facility] STIMULATING [id number] 20:28:00 * Test Item Value Reference Range Interpretation Comme nts TSH (test code = 8596015302) See_Comment [Automated [employer] ge] The system which generated this result transmitted reference range: 0.45 - 4.70 mIU/L. The reference range was not used to interpret this result as normal/abnormal. Lab Interpretation (test code = 61786-5) [facility]FREE [id number] 20:15:00* Test Item Value Reference Range Interpretation Comme nts FREE T4 (test code = 6187595215) 0.95 ng/dL 0.78-2.2 Lab Interpretation (test cod e = 56230-9) [facility] CenterSEDIMENTATION [id number] 20:09:00* Test Item Value Reference Range Interpretation Comme nts ESR (test code = 5353112158) See_Comment [Automated [employer] Zenytime] The system which generated this result transmitted reference range: 0 - 20 mm/HR. The reference range was not used to interpret this result as normal/abnormal. Lab Interpretation (test code = 84296-8) [facility] CenterLIPASE2020-[facility] 20:00:00* Test Item Value Reference Range Interpretation Comme nts LIPASE (test code = 0286643275) 93 U/L 0-220 Lab Interpretation (test cod e = 21738-3) [facility]700[facility]-04 20:00:00* Test Item Value Reference Range Interpretation Comme nts NA (test code = 3668532861) 142 mmol/L 135-145 K (test code = 3518784950) 4.2 mmol/L 3.5-5 CL (test code = 9108340037) 101 mmol/L 98-108 CO2 TOTAL (test code = 7955517594) 31 mmol/L 23-31 AGAP (test code = 6855070164) 2-16 BUN (test code = 1771290210) 12 mg/dL 7-23 GLUCOSE (test code = 7499027541) 92 mg/dL 70-110 CREATININE (test code = 5600420573) 0.61 mg/dL 0.5-1.04 TOTAL BILI (test code = 1660010415) 0.6 mg/dL 0.1-1.1 CALCIUM (test code = 7547556597) 10.6 mg/dL 8.6-10.6 T PROTEIN (test code = 5236377470) 8.0 g/dL 6.3-8.2 ALBUMIN (test code = 0016885352) 4.9 g/dL 3.5-5 ALK PHOS (test code = 9049240949) 67 U/L 34-122 ALTv (test code = 1742-6) 15 U/L 5-35 AST(SGOT) (test code = 1910363498) 28 U/L 13-40 eGFR Calculation (Non-) (test code = 1118479600) mL/min/1.73m2 eGFR Calculation () (test code = 9251529891) mL/min/1.73m2 VINNY (test code = VINNY) Association of Glomerular Filtration Rate (GFR) and Staging of Kidney Disease* + -+ + ---+| GFR (mL/min/1.73 m2) ?| With Kidney Damage ?| ?Without Kidney Damage+ -------+ ------+ ---------+| ?>90 ?| ?Stage one ?| ? Normal ?+ --+ -+ ----+| ?60-89 ?| ?Stage two ?| ? Decreased GFR ? + -+ + ---+| ?30-59 ?| ?Stage three ?| ? Stage three ? + -+ + ---+| ?15-29 ?| ?Stage four ? | ? Stage four ?+ --+ -+ ----+| ?<15 (or dialysis) ? ?| ?Stage five ? | ? Stage five ?+ --+ -+ ----+ *Each stage assumes the associated GFR level has been in effect for at least three months. ?Stages 1 to 5, with or without kidney disease, indicate chronic kidney disease. Notes: Determination of stages one and two (with eGFR >59mL/min/1.73 m2) requires estimation of kidney damage for at least three months as defined by structural or functional abnormalities of the kidney, manifested by either:Pathological abnormalities or Markers of kidney damage (including abnormalities in the composition of the blood or urine or abnormalities in imaging tests). [facility] CenterAMYLASE2020-[facility] 19:59:00* Test Item Value Reference Range Interpretation Comme nts SOCO (test code = 0426751211) 53 U/L 35-110 Lab Interpretation (test cod e = 61306-6) Normal [facility] CenterBILI UNCONJUGATED/BILI [id number] 19:59:00* Test Item Value Reference Range Interpretation Comme nts BILI CONJ (test code = 9031361602) 0.0 mg/dL 0-0.3 BILI UNCON (test code = 6457345297) 0.7 mg/dL 0.1-1.1 Lab Interpretation (test cod e = 34464-0) Normal [facility] CenterD-[id number] 19:57:00* Test Item Value Reference Range Interpretation Comments D-DIMER (test code = 3962383889) See_Comment H [Automated message] The system which generated this result transmitted reference range: <0.41 ?g/mL (FEU). The reference range was not used to interpret this result as normal/abnormal. VINNY (test code = VINNY) This test may be used in conjunction with a clinical pretest probability (PTP) assessment model to exclude venous thromboembolism (VTE) in patients suspected of deep venous thrombosis (DVT) and pulmonary embolism (PE) A D-Dimer value less than 0.50 ?g/ml (FEU) has a negative predicative value of 96 to 100% (95% CI)and 97 to 100% (95% CI) as an aid in the diagnosis of deep vein thrombosis (DVT) and pulmonary embolism when there is low or moderate pretest probability of PE or DVT. D-Dimer values are expressed in initial fibrinogen equivalent units (FEU)" The assay results should be used with other information, including the clinical context, in forming a diagnosis. Lab Interpretation (test code = 94379-0) Abnormal [facility] CenterGLYCOSYLATED HEMOGLOBIN (A1C)2019-08-04 19:48:00* Test Item Value Reference Range Interpretation Comments HGB A1C (test code = 4548-4) See_Comment [Automated message] The system which generated this result transmitted reference range: 4.0 - 6.0 % NGSP. The reference range was not used to interpret this result as normal/abnormal. VINNY (test code = VINNY) %A1C (NGSP) Interpretation (ADA)4.8-5.6 ? ? Normal or (Non-Diabetic Range)5.7-6.4 ? ? Increased Risk (Pre-Diabetic)>6.5 ?Diabetes Indicated Lab Interpretation (test code = 20585-9) [facility] CenterURINALYSIS2020-05-05 19:40:00* Test Item Value Reference Range Interpretation Comme nts APPEARANCE (test code = 6086018255) Clear Clear COLOR (test code = 1936596179) Straw Yellow A PH (test code = 3457175154) 4.8-8.0 SP GRAVITY (test code = 3579802241) 1.003-1.030 GLU U QUAL (test code = 2979066028) Normal Normal BLOOD (test code = 1454396625) 1+ Negative A KETONES (test code = 1868431906) Negative Negative PROTEIN (test code = 2887-8) Negative Negative UROBILIN (test code = 7232995722) Normal Normal BILIRUBIN (test code = 1598890445) Negative Negative NITRITE (test code = 8754657664) Negative Negative LEUK SHAY (test code = 2095045735) Negative Negative RBC/HPF (test code = 1592652432) See_Comment [Automated [employer] ge] The system which generated this result transmitted reference range: 0 - 3 HPF. The reference range was not used to interpret this result as normal/abnormal. WBC/HPF (test code = 0412536356) See_Comment [Automated [employer] ge] The system which generated this result transmitted reference range: 0 - 5 HPF. The reference range was not used to interpret this result as normal/abnormal. BACTERIA (test code = 6356383217) Negative Negative SQ EPITH (test code = 4421715611) HPF Lab Interpretation (test code = 07304-9) [facility]normal [facility] CenterCBC WITH [id number] 19:35:00* Test Item Value Reference Range Interpretation Comme nts WBC (test code = 6690-2) See_Comment [Automated [employer] ge] The system which generated this result transmitted reference range: 4.30 - 11.10 10*3/?L. The reference range was not used to interpret this result as normal/abnormal. RBC (test code = 789-8) See_Comment [Automated [employer] ge] The system which generated this result transmitted reference range: 3.93 - 5.25 10*6/?L. The reference range was not used to interpret this result as normal/abnormal. HGB (test code = 718-7) 12.6 g/dL 11.6-15 HCT (test code = 4544-3) 38.3 % 35.7-45.2 MCV (test code = 787-2) 94.8 fL 80.6-95.5 MCH (test code = 785-6) 31.2 pg 25.9-32.8 MCHC (test code = 786-4) 32.9 g/dL 31.6-35.1 RDW-SD (test code = 40608-0) 47.8 fL 39-49.9 RDW-CV (test code = 788-0) 13.5 % 12-15.5 PLT (test code = 777-3) See_Comment H [Automated [employer] ge] The system which generated this result transmitted reference range: 166 - 358 10*3/?L. The reference range was not used to interpret this result as normal/abnormal. MPV (test code = 23808-0) 9.2 fL 9.5-12.9 L NRBC/100 WBC (test code = 3525850892) See_Comment [Automated [employer] ssage] The system which generated this result transmitted reference range: 0.0 - 10.0 /100 WBCs. The reference range was not used to interpret this result as normal/abnormal. NRBC x10^3 (test code = 9428622251) <0.01 See_Comment [Automated [employer] ge] The system which generated this result transmitted reference range: 10*3/?L. The reference range was not used to interpret this result as normal/abnormal. GRAN MAT (NEUT) % (test code = 770-8) 55.8 % IMM GRAN % (test code = 1887807955) 0.20 % LYMPH % (test code = 736-9) 32.6 % MONO % (test code = 5905-5) 8.3 % EOS % (test code = 713-8) 2.1 % BASO % (test code = 706-2) 1.0 % GRAN MAT x10^3(ANC) (test code = 3452689189) 3.23 10*3/uL 1.88-7.09 IMM GRAN x10^3 (test code = 0677366115) <0.03 0-0.06 LYMPH x10^3 (test code = 731-0) 1.89 10*3/uL 1.32-3.29 MONO x10^3 (test code = 742-7) 0.48 10*3/uL 0.33-0.92 EOS x10^3 (test code = 711-2) 0.12 10*3/uL 0.03-0.39 BASO x10^3 (test code = 704-7) 0.06 10*3/uL 0.01-0.07 Lab Interpretation (test code = 34270-4) Abnormal [facility] ABDOMEN [id number] 18:44:20HISTORY: ? Abdominal pain. TECHNIQUE: Upper abdominal organs were evaluated in multiple planes withthe patient in multiple different positions, without and with colorimaging. FINDINGS: Liver is 13.4 cm, spleen is 8.3 x 2.8 cm, right kidney is 10.2 x4.6 x 5.1 cm and left kidney is 11.8 x 6.5 x 5.9 cm in size. No focallesions are detected in these organs. The right kidney's cortex appearsslightly echogenic. Cortex of both kidneys range between 12 mm and 14 mm.No hydronephrosis, free fluid in the upper abdomen or aortic aneurysmdetected. Visualized portions of the pancreas appear normal. Hepatic andportal venous system appear patent, with hepatopetal portal flow noted. Gallbladder appears to be of normal size and shape with no edema orthickening of the sinclair. No gallstones detected. A few biliary crystals arevisualized floating in the gallbladder lumen. Common hepatic duct is 2.8mm. CONCLUSIONS: No gallstones or any signs of acute cholecystitis. A few smallbiliary crystals in the gallbladder lumen could be sign of dysfunctioninggallbladder. [facility], Radiant Results Inft User - 08/04/2019 1:45 PM CDTHISTORY: Abdominal pain.TECHNIQUE: Upper abdominal organs were evaluated in multiple planes withthe patient in multiple different positions, without and with colorimaging.FINDINGS: Liver is 13.4 cm, spleen is 8.3 x 2.8 cm, right kidney is 10.2 x4.6 x 5.1 cm and left kidney is 11.8 x 6.5 x5.9 cm in size. No focallesions are detected in these organs. The right kidney's cortex appearsslightly echogenic. Cortex of both kidneys range between 12 mm and 14 mm.No hydronephrosis, free fluid in the upper abdomen or aortic aneurysmdetected. Visualized portions of the pancreas appear normal. Hepatic andportal venous system appear patent, with hepatopetal portal flow noted.Gallbladder appearsto be of normal size and shape with no edema orthickening of the sinclair. No gallstones detected. A few biliary crystals arevisualized floating in the gallbladder lumen. Common hepatic duct is 2.8mm.CONCLUSIONS: No gallstones or any signs of acute cholecystitis. A few smallbiliary crystals in the gallbladder lumen could be sign of dysfunctioninggallbladder.[facility]XR [facility]ST 2 2019-08-04 18:10:22HISTORY: Localized swelling/mass/lump. TECHNIQUE: PA and lateral views of the chest are obtained. No prior cheststudy available for comparison. FINDINGS: Mild hyperinflation of lungs noted. Prominent bilateralepicardial fat pads are seen blurring the cardiac borders in the review. Noacute pneumoniadetected. No pneumothorax or pleural effusion or pulmonarycongestion. Cardiothoracic ratio of approximately 11.3/28.2 cm isconsistent with normal cardiac size. CONCLUSIONS: No signs of acute cardiopul monary disease.[facility], Radiant Results Inft User - 08/04/2019 1:11 PM CDTHISTORY: Localized swelling/mass/lump.TECHNIQUE: PA and lateral views of the chest are obtained. No prior cheststudy available for comparison.FINDINGS: Mild hyperinflation of lungs noted. Prominent bilateralepicardial fat pads are seen blurring the cardiac borders in the review. Noacute pneumonia detected. No pneumothorax or pleural effusion or pulmonarycongestion. Cardiothoracic ratio of approximately 11.3/28.2 cm isconsistent with normal cardiac size.CONCLUSIONS: No signs of acute cardiopulmonary disease.[facility] 2 [id number] 18:09:25HISTORY: Anesthesia of skin. FINDINGS: AP and lateral views of the cervical spine are obtained whichshowed no acute fracture or dislocation. C5-C6: Disc space is narrowed by 50-60% with mild endplatesclerosis andsmall osteophytes along the ventral vertebral margins. Minimal narrowing of C4-C5 and C6-C7 disc spaces noted with smallosteophytes along the ventral vertebral margins at C4-C5. AP view showed uncovertebral joint degenerative disease with osteophytesencroaching into the neural foraminaon both sides, right side more thanleft at C5-C6 and into right neural foramen at C4-C5. Prominent transverse processes of C7 noted with a short left cervical rib.Visualized apical regions of both lungs appear clear. CONCLUSIONS: 1. No acute fracture or dislocation. 2. Degenerative disc disease anduncovertebral joint degenerative diseaseat C5-C6. [facility], Radiant Results Inft User - 08/04/2019 1:10PM CDTHISTORY: Anesthesia of skin.FINDINGS: AP and lateral views of the cervical spine are obtainedwhichshowed no acute fracture or dislocation.C5-C6: Disc space is narrowed by 50-60% with mild endplate sclerosis andsmall osteophytes along the ventral vertebral margins.Minimal narrowing of C4-C5 and C6-C7 disc spaces noted with smallosteophytes along the ventral vertebral margins at C4-C5.AP view showed uncovertebral joint degenerative disease with osteophytesencroaching into the neural foramina on both sides, right side more thanleft at C5-C6 and into right neural foramen at C4-C5.Prominenttransverse processes of C7 noted with a short left cervical rib.Visualized apical regions of both lungs appear clear.CONCLUSIONS: 1. No acute fracture or dislocation. 2. Degenerative disc disease anduncovertebral joint degenerative diseaseat C5-C6. [facility]
--- NOTE | 2023-07-01 10:52 | RAD REPORT ---
EXAM DESCRIPTION: CT - Head Brain Wo Cont - 07/01/2023 10:44 am CLINICAL HISTORY: TRAUMA COMPARISON: No comparisons TECHNIQUE: All CT scans are performed using dose optimization technique as appropriate and may inclu de automated exposure control or mA/KV adjustment according to patient size. FINDINGS: No intracranial hemorrhage, hydrocephalus or extra-axial fluid collection.No areas of brai n edema or evidence of midline shift. Left frontal scalp swelling. The paranasal sinuses and mastoids are clear. The calvarium is intact. IMPRESSION: No acute intracranial abnormality.
[2023-07-01 11:02] LABS: Absolute Basophils 0.1 K/uL (0-0.5); Absolute Eosinophils 0.1 K/uL (0-0.5); Absolute Lymphocytes (CBC) 1.5 K/uL (0.7-4.9); Absolute Monocytes 0.5 K/uL (0.1-1.3); Basophils % 1.4 % (0-1.3); Eosinophils % 1.8 % (0-4.4); Hematocrit 40.1 % (36.0-45.0); Hemoglobin 13.4 g/dL (12.0-15.0); Lymphocytes % 28.6 % (15.3-44.8); MCH 31.2 pg (27.0-35.0); MCHC 33.4 g/dL (32.0-36.0); MCV 93.6 fL (80-100); Monocytes % 9.5 % (3.3-12.3); Neutrophils % 58.7 % (41.7-73.7); Nucleated Red Blood Cells % 0.1 % (0-0); Platelets 480 thou/uL (152-406); RBC Red Blood Cell Count 4.28 M/uL (3.86-4.86); Red Cell Distribution Width 14.3 % (12.1-15.2)
[2023-07-01 11:14] LABS: PT Prothrombin Time 10.3 SECONDS (9.5-12.5); PTT, Activated Partial Thromb 37.3 SECONDS (24.3-36.9); Protime INR 0.93
[2023-07-01 11:19] LABS: Albumin 3.8 g/dL (3.4-5.0); Albumin/Globulin Ratio 0.9 (1.1-1.8); Anion Gap 8.4 mEq/L (5.0-15.0); Bilirubin Direct 0.2 mg/dL (0-0.2); Bilirubin Indirect, Calculated 0.4 mg/dL (0.2-0.8); Bilirubin Total 0.6 mg/dL (0.2-1.0); Globulin 4.2 g/dL (2.3-3.5); Magnesium 2.1 mg/dL (1.6-2.4); Potassium 3.4 mEq/L (3.5-5.1)
[2023-07-01] MEDS ORDERED: NA CHLORIDE 0.9% 1,000 ML ONE ×2 (11:42→12:09)
[2023-07-01] MEDS ORDERED: MECLIZINE HCL 12.5 MG TAB ONE (11:42)
[2023-07-01] MEDS ORDERED: ONDANSETRON 4 MG/2 ML VIAL ONE (12:09)
[2023-07-01] MEDS ORDERED: ONDANSETRON 4 MG (ODT) TAB ONE (12:10)
--- NOTE | 2023-07-01 12:22 | EDPHYS ---
Physician Documentation [facility] Name: Jemima Portillo Age: 62 yrs Sex: Female : 1960 Arrival Date: 07/01/2023 Time: 10:11 Bed 11 Private MD: ED Physician Fortino Rojas HPI: 06/30 10:41 This 62 yrs old Female presents to ER via Ambulatory with complaints of Nausea, sb4 Dizziness. 10:41 Patient states that 2 days she sustained a mechanical fall hit her head and sustained a sb4 laceration to her left forehead. She was evaluated after, had a negative head CT, had a tetanus shot, and was sutured and discharged. She states that this morning she woke up feeling very dizzy and the area itself was much more swollen. She also endorses nausea. Historical: - Allergies: 10:27 Codeine; ll1 10:27 tequin; ll1 - Home Meds: 10:27 None [Active]; ll1 - PMHx: 10:27 None; ll1 - PSHx: 10:27 L kidney surgery; R shoulder repair tendon; hysterectomy; ll1 - Immunization history:: Adult Immunizations up to date. - Social history:: Smoking status: Patient denies any tobacco usage or history of. ROS: 10:41 Constitutional: Negative for fever, chills, and weight loss, sb4 10:41 Abdomen/GI: Positive for nausea, 10:41 MS/extremity: Positive for ecchymosis, swelling, of the forehead, 10:41 Neuro: Positive for dizziness, 10:41 All other systems are negative, Exam: 10:41 Constitutional: This is a well developed, well nourished patient who is awake, alert, sb4 and in no acute distress. 10:41 Eyes: Extra-ocular motions intact. Periorbital areas with no swelling, redness, or edema. ENT: Mucous membranes moist. Cardiovascular: Regular rate and rhythm with a normal S1 and S2. Respiratory: Lungs have equal breath sounds bilaterally, clear to auscultation and percussion. No rales, rhonchi or wheezes noted. No increased work of breathing, no retractions or nasal flaring. Abdomen/GI: Soft, non-tender, no distension. Skin: Warm, dry with normal turgor. Normal color with no rashes, no lesions, and no evidence of cellulitis. MS/ Extremity: Pulses equal, no cyanosis. Neurovascular intact. Full, normal range of motion. Neuro: Awake and alert, GCS 15, oriented to person, place, time, and situation. Motor strength 5/5 in all extremities. Sensory grossly intact. 10:41 Head/face: Noted is ecchymosis, that is mild, of the forehead, hematoma, of the forehead, swelling, tenderness, sutured laceration left forehead. Vital Signs: 10:29 BP 137 / 69; Pulse 77; Resp 17; Temp 97.2; Pulse Ox 100% ; Weight 73.48 kg; Height 5 ll1 ft. 6 in. ; Pain 8/10; 12:40 BP 133 / 72; Pulse 81; Resp 18; Pulse Ox 99% on R/A; rs5 10:29 Body Mass Index 26.15 (73.48 kg, 167.64 cm) ll1 10:29 Pain Scale: Adult ll1 MDM: 10:27 Patient medically screened. sb4 10:41 Differential diagnosis: post concussive syndrome, epidural hematoma, subdural hematoma. sb4 12:21 Data reviewed: vital signs, nurses notes, lab test result(s), EKG, radiologic studies, sb4 and as a result, I will discharge patient. Counseling: I had a detailed discussion with the patient and/or guardian regarding the historical points, exam findings, and any diagnostic results supporting the discharge/admit diagnosis, lab results, radiology results, to return to the emergency department if symptoms worsen or persist or if there are any questions or concerns that arise at home. 06/30 10:35 Order name: Basic Metabolic Panel; Complete Time: 11:20 sb4 06/30 10:35 Order name: CBC with Diff; Complete Time: 11:03 sb4 06/30 10:35 Order name: Hepatic Function; Complete Time: 11:20 sb4 06/30 10:35 Order name: Magnesium; Complete Time: 11:20 sb4 06/30 10:35 Order name: Protime (+inr); Complete Time: 11:16 sb4 06/30 10:35 Order name: Ptt, Activated; Complete Time: 11:16 sb4 06/30 10:35 Order name: CT Head Brain wo Cont; Complete Time: 10:53 sb4 06/30 11:40 Order name: Ice pack; Complete Time: 12:33 sb4 Administered Medications: 12:16 Drug: Meclizine PO 25 mg PO once Route: PO; ph 12:30 Follow up: Response: No adverse reaction rs5 12:16 Drug: NS 0.9% IV 1000 ml IV at 1 bolus Per protocol; 1000 mL bolus Route: IV; Rate: 1 ph bolus; Site: left antecubital; 12:30 Follow up: Response: No adverse reaction rs5 12:16 Drug: Ondansetron Oral Disintegrating Tablet Oral Disintegrating Tablet 4 mg PO once ph Route: PO; 12:30 Follow up: Response: No adverse reaction; Nausea is decreased rs5 Disposition: 15:10 I was immediately available on-site in the Emergency Department for consultation in the ms3 care of the patient. Disposition Summary: 07/01/23 12:21 Discharge Ordered Notes: Location: Home sb4 Problem: new sb4 Symptoms: have improved sb4 Condition: Stable sb4 Diagnosis - Postconcussional syndrome sb4 - Dizziness and giddiness sb4 Followup: sb4 - With: Emergency Department - When: As needed - Reason: Trouble breathing, Worsening of condition Discharge Instructions: - Discharge Summary Sheet sb4 - Facial or Scalp Contusion sb4 - Post-Concussion Syndrome, Msnw-dy-Cdee sb4 Forms: - Work release form ph - Thank You Letter sb4 - Patient Portal Instructions sb4 - Leadership Thank You Letter sb4 Prescriptions: - Zofran 4 mg Oral Tablet - take 1 tablet ORAL route every 12 hours As needed; 20 tablet; Refills: 0, sb4 Product Selection Permitted Signatures: Dispatcher [employer] EDSierra Campbell RN RN Gunner Smith RN RN ll1 Fortino Rojas DO DO ms3 Nelsy Loyd PA-C PA-C sb4 Antonio Marino RN rs5 Corrections: (The following items were deleted from the chart) 10:35 10:35 BASIC METABOLIC PANEL+C.LAB.BRZ ordered. EDMS EDMS 10:35 10:35 CBC+H.LAB.BRZ ordered. EDMS EDMS 10:35 10:35 HEPATIC FUNCTION+C.LAB.BRZ ordered. EDMS EDMS 10:35 10:35 MAGNESIUM+C.LAB.BRZ ordered. EDMS EDMS 10:35 10:35 PROTIME (+INR)+COAG.LAB.BRZ ordered. EDMS EDMS 10:35 10:35 PTT, ACTIVATED+COAG.LAB.BRZ ordered. EDMS EDMS
--- NOTE | 2023-07-01 12:22 | ER ---
Nurse's Notes [facility] Name: Jemima Portillo Age: 62 yrs Sex: Female : 1960 Arrival Date: 07/01/2023 Time: 10:11 Bed 11 Private MD: Diagnosis: Postconcussional syndrome;Dizziness and giddiness Presentation: 06/30 10:29 Chief complaint: Patient states: Tripped Saturday and went to [place] ll1 forehead. Swelling has gotten worse, numb feeling near wound. + ESQUIVEL, dizzy, nausea since yesterday. Coronavirus screen: Client denies travel out of the [place] in the last 14 days. At this time, the client does not indicate any symptoms associated with coronavirus-19. Ebola Screen: Patient denies travel to an Ebola-affected area in the 21 days before illness onset. Initial Sepsis Screen: Does the patient meet any 2 criteria? No. Patient's initial sepsis screen is negative. Does the patient have a suspected source of infection? No. Patient's initial sepsis screen is negative. Risk Assessment: Do you want to hurt yourself or someone else? Patient reports no desire to harm self or others. Onset of symptoms was June 29, 2023. 10:29 Method Of Arrival: Ambulatory ll1 10:29 Acuity: MYLA 3 ll1 Triage Assessment: 10:32 General: Appears uncomfortable, Behavior is calm, cooperative, appropriate for age. ll1 Pain: Complains of pain in head Pain currently is 8 out of 10 on a pain scale. Quality of pain is described as aching, throbbing. Neuro: Reports dizziness, headache numbness. GI: Reports nausea. Historical: - Allergies: 10:27 Codeine; ll1 10:27 tequin; ll1 - Home Meds: 10:27 None [Active]; ll1 - PMHx: 10:27 None; ll1 - PSHx: 10:27 L kidney surgery; R shoulder repair tendon; hysterectomy; ll1 - Immunization history:: Adult Immunizations up to date. - Social history:: Smoking status: Patient denies any tobacco usage or history of. Screenin:18 [facility] ED Fall Risk Assessment (Adult) History of falling in the last 3 months, ph including since admission Yes- single mechanical fall (1 pt) Confusion or Disorientation No (0 pts) Intoxicated or Sedated No (0 pts) Impaired Gait No (0 pts) Mobility Assist Device Used No (0 pt) Altered Elimination No (0 pt). Abuse screen: Denies threats or abuse. Denies injuries from another. Nutritional screening: No deficits noted. Tuberculosis screening: No symptoms or risk factors identified. Assessment: 12:16 General: Appears in no apparent distress. comfortable, Behavior is calm, cooperative, ph appropriate for age. Pain: Complains of pain in forehead. Neuro: Level of Consciousness is awake, alert, obeys commands, Oriented to person, place, time, situation, sutured laceration to L side of forehead. Reports dizziness. Cardiovascular: Capillary refill < 3 seconds in bilateral fingers Patient's skin is warm and dry. Respiratory: Airway is patent Respiratory effort is even, unlabored. GI: Abdomen is non-distended, Reports nausea, Patient currently denies abdominal pain, vomiting. Musculoskeletal: Range of motion: intact in all extremities. 12:40 Reassessment: Patient and/or family updated on plan of care and expected duration. Pain rs5 level reassessed. Patient is alert, oriented x 3, equal unlabored respirations, skin warm/dry/pink. Patient states feeling better. Patient states symptoms have improved. Vital Signs: 10:29 BP 137 / 69; Pulse 77; Resp 17; Temp 97.2; Pulse Ox 100% ; Weight 73.48 kg; Height 5 ll1 ft. 6 in. ; Pain 8/10; 12:40 BP 133 / 72; Pulse 81; Resp 18; Pulse Ox 99% on R/A; rs5 10:29 Body Mass Index 26.15 (73.48 kg, 167.64 cm) ll1 10:29 Pain Scale: Adult ll1 ED Course: 10:15 Patient arrived in ED. mr 10:19 Nelsy Loyd PA-C is PHCP. sb4 10:19 Fortino Rojas DO is Attending Physician. sb4 10:27 Arm band placed on. ll1 10:30 Triage completed. ll1 10:30 Patient has correct armband on for positive identification. Placed in gown. Bed in low rs5 position. Call light in reach. Side rails up X2. 10:45 CT Head Brain wo Cont In Process Unspecified. EDMS 10:56 Initial lab(s) drawn, by me, sent to lab. Inserted saline lock: 20 gauge in left em1 antecubital area, using aseptic technique. Blood collected. 11:33 Sierra Pisano, RN is Primary Nurse. ph 12:39 No provider procedures requiring assistance completed. rs5 12:41 IV discontinued, intact, bleeding controlled, No redness/swelling at site. Pressure rs5 dressing applied. Administered Medications: 12:16 Drug: Meclizine PO 25 mg PO once Route: PO; ph 12:30 Follow up: Response: No adverse reaction rs5 12:16 Drug: NS 0.9% IV 1000 ml IV at 1 bolus Per protocol; 1000 mL bolus Route: IV; Rate: 1 ph bolus; Site: left antecubital; 12:30 Follow up: Response: No adverse reaction rs5 12:16 Drug: Ondansetron Oral Disintegrating Tablet Oral Disintegrating Tablet 4 mg PO once ph Route: PO; 12:30 Follow up: Response: No adverse reaction; Nausea is decreased rs5 Medication: 12:40 VIS not applicable for this client. rs5 Outcome: 12:21 Discharge ordered by MD. sb4 12:39 Discharged to home ambulatory, rs5 12:39 Condition: stable rs5 12:39 Discharge instructions given to patient, family, Instructed on discharge instructions, follow up and referral plans. medication usage, Demonstrated understanding of instructions, follow-up care, medications, Prescriptions given X 1, 12:40 Patient left the ED. rs5 Signatures: Dispatcher [employer] EDMI Isa Alonso, Reg Reg Neel Pride em1 Sierra Pisano, ANTONIO RN Gunner Smith RN RN 1 Nelsy Loyd, PA-Breana PA-Breana sb4 Antonio Marino RN RN rs5 Corrections: (The following items were deleted from the chart) 13:38 12:50 Patient left the ED. ph rs5
[2023-07-01 17:17] VITALS: BP 133/72; TEMP 97.2; O2SAT 99
== END 2023-07-01 12:50 | disposition home or self-care (01) ==
LOC: ER 10:11
DX: R42 Dizziness and giddiness (principal); F07.81 Postconcussional syndrome; Z88.5 Allergy status to narcotic agent; Z88.8 Allergy status to other drugs, medicaments and biological substances
CPT/HCPCS: 85025; 80048; 36415; 83735; 85610; 80076; 85730; 70450; 99284; J8597; Q0162; J7030 ×2; J2405

== ENCOUNTER 2024-02-03 17:46 | Observation (INO) | payer BC ==
--- OUTSIDE RECORDS SUMMARY | 2024-02-03 18:06 | XMS REPORT | Continuity of Care Document ---
Author Name Unknown Address [address] [facility]. [address] [place] [address] [facility] Address [address] [facility] [address] [place] [address] Care Team Providers Care Staff Therapist Name Role Phone PCP, PATIENT DOES NOT HAVE A Primary Care Physic blessing Unavailable TYLER ESTRADA Attending Clinician Unavailab TYLER Crane Attending Clinician Unavailab DALILA Rowan Attending Clinician Unavailable KORINA WILLARD Attending Clinician Unavailable KORINA WILLARD Attending Clinician Unavailable Hallie BUDGET CONSULTANT, Korina Attending Clinician [phone] HEATHER MILES Attending Clinician Unavailable Heather Miles MD Attending Clinician [phone] Unknown, Attending Attending Clinician Unavailab JHOAN Wheeler Attending Clinician Unavailable NAIDA TRAYLOR Attending Clinician Unavailable Jhoan Lynn MD Attending Clinician [phone] Gramm Indu REAGAN Attending Clinician [phone] SHAHLA INDU Lorelei Attending Clinician Unavailable LEÓN FALLON Attending Clinician Unavailable Doctor Unassigned, [place] Attending Clinician Jimy Nolan MD Attending Clinician + [phone] JIMY ARENAS Attending Clinician UnaAndreia Vasquez Attending Clinician + [phone] ANDREIA NINA Attending Clinician Unavail able LOYDA LUX Attending Clinician Unavailable LOYDA LUX Attending Clinician Unavailable Loyda Lux DO Attending Clinician Pob, Adc Lab Main Attending Clinician UnavailMiguel Srinivasan MD Attending Clinician Pc, Adc Echo Room 1 - Attending Clinician MIGUEL Shields Attending Clinician Unavailable 1, Adc Lab Attending Clinician Unavailable Nurse, [facility] Attending Clinician Unava ilable Unknown, Attending Attending Clinician Unavailab KORINA Lopez Admitting Clinician Unavailable JIMY ARENAS Admitting Clinician ANDREIA Torres Admitting Clinician Unavail able Payers Payer Name Policy Type Policy Number Effective Date Expirati on Date Source [facility] [id number] 2017 00:00:00 Problems Condition Name Condition Details Condition Category Status Onset Date Resolution Date Last Treatment Date Treating Clinician Comments Source No known active problems No known active problems Disease [facility] Allergies, Adverse Reactions, Alerts Allergy Name Allergy Type Status Severity Reaction(s) Onset Date Inactive Date Treating Clinician Comments Source GATIFLOX ACIN DRUG INGREDI Active Rash 07-25 00:00: 00 [facility] Gatiflox acin Propensi ty to adverse reaction s Active Rash 07-25 00:00: 00 [facility] Social History Social Habit Start Date Stop Date Quantity Comments Source Exposure to SARS-CoV-2 (event) Not sure [facility] Alcoholic beverage intake 2024-01-25 00:00:00 2024-01-25 00:00:00 Current drinker of alcohol (finding) [facility] Tobacco use and exposure 2023-11-18 00:00:00 2023-11-18 00:00:00 Smokeless tobacco non-user [facility] History of Social function 2023-11-18 00:00:00 2023-11-18 00:00:00 [facility] History SDOH Alcohol Frequency 2019-11-18 00:00:00 2019-11-18 00:00:00 3 [facility] History SDOH Alcohol Std Drinks 2019-11-18 00:00:00 2019-11-18 00:00:00 99 [facility] History SDOH Alcohol Binge 2019-11-18 00:00:00 2019-11-18 00:00:00 99 [facility] Alcohol intake 2019-11-18 00:00:00 2019-11-18 00:00:00 Current drinker of alcohol (finding) [facility] Sex assigned at [birth year] 00:00:00 [facility] Smoking Status Start Date Stop Date Source Unknown if ever smoked [facility] Never smoked tobacco [facility] Medications Ordered Medication Name Filled Medication Name Start Date Stop Date Current Medication? Ordering Clinician Indication Dosage Frequency Signature (SIG) Comments Components Source ketorolac (TORADOL) injection 15 mg 2023-04 04:00: 00 01-25 03:31 :00 No 15mg 15 mg, Slow IV Push, ONCE, 1 dose, On 01/25/24 at 2300, VELASQUEZ [facility] HYDROcodone -acetaminop hen (NORCO 5) tablet 1 tablet 2023-04 00:15: 00 01-25 00:13 :00 No 1{tbl} 1 tablet, Oral, ONCE, 1 dose, On 01/25/24 at 1915, VELASQUEZ [facility] ibuprofen 600 mg tablet 2023-04 00:00: 00 02-01 04:59 :00 Yes [id number] 600mg Take 1 tablet by mouth every 6 (six) hours as needed for Pain (scale 4-6) for up to 7 days. [facility] cephALEXin 500 mg capsule 2023-04 00:00: 00 01-30 04:59 :00 Yes [id number] 500mg Take 1 capsule by mouth in the morning and 1 capsule in the evening. Do all this for 5 days. [facility] traMADoL 50 mg tablet 2023-04 00:00: 00 01-28 04:59 :00 Yes [id number] 50mg Take 1 tablet by mouth every 6 (six) hours as needed for Pain (scale 7-10) for up to 3 days. Indication s: acute pain [facility] mupirocin 2 % ointment 11-17 00:00: 00 Yes [id number] Apply to area(s) 3 (three) times daily. [facility] cephALEXin 500 mg capsule 11-17 00:00: 00 11-25 04:59 :00 Yes [id number] 500mg Take 1 capsule by mouth 4 (four) times daily for 7 days. [facility] iohexol (OMNIPAQUE 350 BULK-150 mL) injection 130 mL 11-04 18:30: 00 11-04 18:15 :00 No 130mL 130 mL, Intravenou s, ONCE, 1 dose, Anna 11/05/19 at 1330, Routine [facility] sincalide (KINEVAC) injection 1.4 mcg 09-09 14:15: 09-09 14:15 :00 No 1.4ug 1.4 mcg, IV Push, ONCE, 1 dose, Anna 09/10/19 at 0915, Routine [facility] tc 99m-mebrofe brent injection 9.5 millicurie 09-09 13:15: 00 09-09 13:00 :00 No 9.5mCi 9.5 millicurie , Intravenou s, ONCE, 1 dose, Anna 09/10/19 at 0815, Routine [facility] TRULANCE 3 mg Tab 08-31 00:00: 00 Yes [facility] contrast previously administere d 0 mL 08-12 15:15: 00 08-12 15:02 :00 No Intravenou s, ONCE, 1 dose, Anna 08/13/19 at 1015, Routine [facility] iohexol (OMNIPAQUE 350 BULK-150 mL) injection 120 mL 08-12 15:15: 00 08-12 15:02 :00 No 120mL 120 mL, Intravenou s, ONCE, 1 dose, Anna 08/13/19 at 1015, Routine [facility] No known medications No Un mo ity [facility] No known medications No Un mo ity of [facility] No known medications No Un mo ity of [facility] No known medications No Un mo ity of [facility] No known medications No Un mo ity of [facility] No known medications No Un mo ity of [facility] No known medications No Un mo ity of [facility] No known medications No Un mo ity of [facility] No known medications No Un mo ity [facility] No known medications No Un mo ity [facility] No known medications No Un mo ity [facility] No known medications No Un mo ity [facility] No known medications No Un mo ity [facility] No known medications No Un mo ity [facility] No known medications No Un mo ity [facility] No known medications No Un mo ity [facility] No known medications No Un mo ity [facility] No known medications No Un mo ity of [facility] No known medications No Un mo ity of [facility] No known medications No Un mo ity of [facility] No known medications No Un mo ity of [facility] Vital Signs Vital Name Observation Time Observation Value Comments S ource Systolic blood pressure 2024-01-26 04:50:00 147 mm[Hg] [facility] Diastolic blood pressure 2024-01-26 04:50:00 80 mm[Hg] [facility] Heart rate 2024-01-26 04:50:00 87 /min [facility] Body temperature 2024-01-26 04:50:00 36.78 Christine [facility] Respiratory rate 2024-01-26 04:50:00 15 /min [facility] Oxygen saturation in Arterial blood by Pulse oximetry 2024-01-26 04:50:00 98 /min [facility] Body height 2024-01-25 22:49:00 167.6 cm [facility] Body weight 2024-01-25 22:49:00 79.379 kg [facility] BMI 2024-01-25 22:49:00 28.25 kg/m2 [facility] Systolic blood pressure 2023-11-18 23:14:00 140 mm[Hg] [facility] Diastolic blood pressure 2023-11-18 23:14:00 81 mm[Hg] [facility] Heart rate 2023-11-18 23:14:00 75 /min [facility] Body temperature 2023-11-18 23:14:00 36.61 Christine [facility] Respiratory rate 2023-11-18 23:14:00 16 /min [facility] Body height 2023-11-18 23:14:00 167.6 cm [facility] Body weight 2023-11-18 23:14:00 79.606 kg [facility] BMI 2023-11-18 23:14:00 28.33 kg/m2 [facility] Oxygen saturation in Arterial blood by Pulse oximetry 2023-11-18 23:14:00 97 /min [facility] Systolic blood pressure 2019-11-18 20:05:00 137 mm[Hg] [facility] Diastolic blood pressure 2019-11-18 20:05:00 76 mm[Hg] [facility] Heart rate 2019-11-18 20:05:00 68 /min [facility] Respiratory rate 2019-11-18 20:05:00 14 /min [facility] Body height 2019-11-18 20:05:00 167.6 cm [facility] Body weight 2019-11-18 20:05:00 74.481 kg [facility] BMI 2019-11-18 20:05:00 26.50 kg/m2 [facility] Oxygen saturation in Arterial blood by Pulse oximetry 2019-11-18 20:05:00 95 /min [facility] Systolic blood pressure 2019-10-06 15:43:00 143 mm[Hg] [facility] Diastolic blood pressure 2019-10-06 15:43:00 77 mm[Hg] [facility] Heart rate 2019-10-06 15:43:00 77 /min [facility] Body temperature 2019-10-06 15:38:00 36.83 Christine [facility] Body weight 2019-10-06 15:38:00 73.936 kg [facility] BMI 2019-10-06 15:38:00 26.31 kg/m2 [facility] Systolic blood pressure 2019-08-13 21:18:00 134 mm[Hg] [facility] Diastolic blood pressure 2019-08-13 21:18:00 70 mm[Hg] [facility] Heart rate 2019-08-13 21:18:00 62 /min [facility] Body height 2019-08-13 21:18:00 167.6 cm [facility] Body weight 2019-08-13 21:18:00 73.936 kg [facility] BMI 2019-08-13 21:18:00 26.31 kg/m2 [facility] Systolic blood pressure 2018-11-15 16:18:00 128 mm[Hg] [facility] Diastolic blood pressure 2018-11-15 16:18:00 82 mm[Hg] [facility] Heart rate 2018-11-15 16:18:00 96 /min [facility] Body temperature 2018-11-15 16:18:00 37.22 Christine [facility] Respiratory rate 2018-11-15 16:18:00 17 /min [facility] Body height 2018-11-15 16:18:00 167.6 cm [facility] Body weight 2018-11-15 16:18:00 70.478 kg [facility] BMI 2018-11-15 16:18:00 25.08 kg/m2 [facility] Oxygen saturation in Arterial blood by Pulse oximetry 2018-11-15 16:18:00 97 /min [facility] Procedures Procedure Date / Time Performed Performing Clinician Source TROPONIN I 2024-01-26 00:34:00 Korina Willard [facility] COMP. METABOLIC PANEL (18768) 2024-01-26 00:34:00 Korina Willard [facility] CBC WITH DIFF 2024-01-26 00:34:00 Korina Willard [facility] PROTHROMBIN TIME / INR 2024-01-26 00:34:00 Neel Willard [facility] D-DIMER 2024-01-26 00:34:00 Hallie [facility] URINALYSIS 2024-01-26 00:16:00 Hallie [facility] POCT URINALYSIS 2023-11-18 00:00:00 Heather [facility] CT ABDOMEN PELVIS W WO CONTRAST 2019-11-05 18:27:14 Indu Gale [facility] HB CREATININE BLOOD 2019-11-05 18:12:00 Indu Gale [facility] POCT URINALYSIS AUTO 2019-10-06 15:42:00 Indu Gale [facility] REFERRAL- REQUEST/RESPONSE 2019-09-23 05:01:00 Doctor Unassigned, [place] [facility] NM HEPATOBILIARY W INTERVENTION 2019-09-10 14:51:00 Jimy Arenas [facility] NM HEPATOBILIARY W INTERVENTION 2019-09-10 14:51:00 Jimy Arenas [facility] EXTERNAL PROVIDER - ADC REFERRAL 2019-09-09 05:01:00 Doctor Unassigned, [place] [facility] BI ULTRASOUND BREAST LIMITED BILATERAL 2019-09-08 18:56:32 Andreia Nina [facility] BI DIAGNOSTIC TOMOSYNTHESIS BILATERAL 2019-09-08 18:39:24 Andreia Nina [facility] AUTHORIZATION FOR RELEASE OF PHI 2019-09-06 05:01:00 Doctor Unassigned, [place] [facility] XR KNEE 3 VW RIGHT 2019-08-26 19:54:54 Andreia Nina [facility] US HEAD NECK 2019-08-26 19:49:08 Andreia Nina [facility] XR CHEST 2 VW 2019-08-26 19:10:00 Andreia Nina [facility] EXTERNAL PROVIDER - ADC REFERRAL 2019-08-24 05:01:00 Doctor Unassigned, [place] [facility] AUTHORIZATION FOR RELEASE OF PHI 2019-08-21 05:01:00 Doctor Unassigned, [place] [facility] REFERRAL- REQUEST/RESPONSE 2019-08-19 05:01:00 Doctor Unassigned, [place] [facility] CT ABDOMEN PELVIS W WO CONTRAST 2019-08-13 15:10:01 Andreia Nina [facility] CT THORAX W CONTRAST 2019-08-13 15:07:49 Andreia Nina [facility] EXTERNAL PROVIDER - ADC REFERRAL 2019-08-10 05:01:00 Doctor Unassigned, [place] [facility] AMYLASE 2019-08-04 19:05:00 Andreia Nina [facility] LIPASE 2019-08-04 19:05:00 Andreia Nina [facility] FERRITIN SERUM 2019-08-04 19:05:00 Andreia Nina [facility] BILI UNCONJUGATED/BILI CONJUG 2019-08-04 19:05:00 Andreia Nina [facility] FREE T4 2019-08-04 19:05:00 [facility] THYROID STIMULATING HORMONE 2019-08-04 19:05:00 Andreia Nina [facility] COMP. METABOLIC PANEL (80203) 2019-08-04 19:05:00 Andreia Nina [facility] SEDIMENTATION RATE 2019-08-04 19:05:00 [facility] CBC WITH DIFFERENTIAL 2019-08-04 19:05:00 Deandre Nina [facility] GLYCOSYLATED HEMOGLOBIN (A1C) 2019-08-04 19:05:00 Andreia Nina [facility] D-DIMER 2019-08-04 19:05:00 Andreia Nina [facility] URINALYSIS 2019-08-04 19:05:00 Andreia Nina [facility] US ABDOMEN COMPLETE 2019-08-04 18:41:10 Andreia Nina [facility] XR CHEST 2 VW 2019-08-04 18:04:46 Andreia Nina [facility] XR CERVICAL SPINE 2 VW 2019-08-04 18:04:[address] [facility] PATIENT FINANCIAL POLICY 2018-11-15 15:52:52 Doctor Unassigned, [place] [facility] Encounters Start Date/Time End Date/Time Encounter Type Admission Type Attending [facility] Care Department Encounter ID Source 2024-01-25 17:51:00 2024-01-26 00:00:00 Emergency KORINA MOON ERICA [facility] ERT [id number] [facility] 2024-01-25 17:51:00 2024-01-26 00:00:00 Emergency Korina Willard [facility] 1.840.114 350.1.13.10 4.2.7.2.686 [id number] [facility] 2023-11-18 17:20:00 2023-11-18 18:35:40 Outpatient R HEATHER MILES [facility] [id number] [facility] 2023-11-18 17:20:00 2023-11-18 18:35:40 Urgent Care Heather Miles Unknown, Attending [facility] 1.840.114 350.1.13.10 4.2.7.2.686 [id number] [facility] 2020-08-10 09:00:00 2020-08-10 09:00:00 Outpatient LEAH [facility] [id number] [facility] 2020-08-05 08:30:00 2020-08-05 08:30:00 Outpatient R JHOAN LYNN [facility] [id number] [facility] 2019-12-24 13:30:00 2019-12-24 13:30:00 Outpatient R NAIDA TRAYLOR [facility] [id number] [facility] 2019-11-18 14:32:07 2019-11-18 16:01:25 Office Visit Leah Jhoan [facility] 1.840.114 350.1.13.10 4.2.7.2.686 [id number] [facility] 2019-11-18 15:00:00 2019-11-18 15:00:00 Outpatient R JHOAN LYNN [facility] [id number] [facility] 2019-11-06 08:00:00 2019-11-06 08:00:00 Outpatient R NAIDA TRAYLOR [facility] [id number] [facility] 2019-11-05 12:43:09 2019-11-05 23:59:00 Hospital Encounter Indu Gale [facility] 1.2.840.114 350.1.13.10 4.2.7.2.686 [id number] [facility] 2019-11-05 00:00:00 2019-11-05 00:00:00 Outpatient R INDU GALE [facility] [id number] [facility] 2019-11-03 15:40:00 2019-11-03 15:40:00 Outpatient R LEÓN FALLON [facility] [id number] [facility] 2019-10-16 00:00:00 2019-10-16 00:00:00 Outpatient R INDU GALE [facility] [id number] [facility] 2019-10-08 08:20:00 2019-10-08 08:20:00 Outpatient R LEÓN FALLON [facility] [id number] [facility] 2019-10-06 10:11:34 2019-10-06 10:45:00 Office Visit Indu Gale [facility] 1.2.840.114 350.1.13.10 4.2.7.2.686 [id number] [facility] 2019-10-06 10:00:00 2019-10-06 10:00:00 Outpatient R INDU GALE [facility] [id number] [facility] 2019-09-23 00:00:00 2019-09-23 00:00:00 Orders Only Doctor Unassigned, [place] [facility] 1.2.840.114 350.1.13.10 4.2.7.2.686 [id number] [facility] 2019-09-16 14:00:00 2019-09-16 14:00:00 Outpatient R INDU GALE [facility] [id number] [facility] 2019-09-10 07:43:00 2019-09-10 23:59:00 Hospital Encounter Jimy Tobias [facility] 1.2840.114 350.1.13.10 4.2.7.2.686 [id number] [facility] 2019-09-10 07:42:49 2019-09-10 07:42:00 Outpatient R JIMY TOBIAS [facility] [id number] [facility] 2019-09-10 07:42:00 2019-09-10 07:42:00 Hospital Encounter Rabiadaniprasad johnson Ingridpk Toussaint [facility] 1.2840.114 350.1.13.10 4.2.7.2.686 [id number] [facility] 2019-09-09 00:00:00 2019-09-09 00:00:00 Orders Only Doctor Unassigned, [place] [facility] 1.2840.114 350.1.13.10 4.2.7.2.686 [id number] [facility] 2019-09-08 12:51:00 2019-09-08 23:59:00 Hospital Encounter Andreia Nina [facility] 1.2.840.114 350.1.13.10 4.2.7.2.686 [id number] [facility] 2019-09-08 12:50:25 2019-09-08 12:50:00 Outpatient R ANDREIA NINA [facility] [id number] [facility] 2019-09-08 12:50:00 2019-09-08 12:50:00 Hospital Encounter Andreia Ninadell [facility] 1.2.840.114 350.1.13.10 4.2.7.2.686 [id number] [facility] 2019-09-06 00:00:00 2019-09-06 00:00:00 Orders Only Doctor Unassigned, [place] [facility] 1.2.840.114 350.1.13.10 4.2.7.2.686 [id number] [facility] 2019-08-28 14:00:00 2019-08-28 14:00:00 Outpatient R LOYDA LUX SHIDCPetra [facility] [id number] [facility] 2019-08-28 08:21:19 2019-08-28 08:41:19 Telemedici ne Visit Loyda Lux [facility] nal Building 1.2.840.114 350.1.13.10 4.2.7.2.686 [id number] [facility] 2019-08-26 13:50:00 2019-08-26 23:59:00 Hospital Encounter Andreia Ninadell [facility] 1.2.840.114 350.1.13.10 4.2.7.2.686 [id number] [facility] 2019-08-26 13:55:36 2019-08-26 14:10:36 Tobacco Stripper Hand Visit Pob, Adc Lab Main Andreia Nina [facility] nal Building 1.2.840.114 350.1.13.10 4.2.7.2.686 [id number] [facility] 2019-08-26 13:49:10 2019-08-26 13:49:00 Outpatient R [facility] [id number] [facility] 2019-08-26 13:49:00 2019-08-26 13:49:00 Hospital Encounter Andreia Nina [facility] 1.2.840.114 350.1.13.10 4.2.7.2.686 [id number] [facility] 2019-08-26 13:49:00 2019-08-26 13:49:00 Hospital Encounter Andreia Nina [facility] 1.2.840.114 350.1.13.10 4.2.7.2.686 [id number] [facility] 2019-08-24 00:00:00 2019-08-24 00:00:00 Orders Only Doctor Unassigned, [place] [facility] 1.2.840.114 350.1.13.10 4.2.7.2.686 [id number] [facility] 2019-08-21 00:00:00 2019-08-21 00:00:00 Telephone Miguel Mejia [facility] 1.2.840.114 350.1.13.10 4.2.7.2.686 [id number] [facility] 2019-08-21 00:00:00 2019-08-21 00:00:00 Orders Only Doctor Unassigned, [place] [facility] 1.2.840.114 350.1.13.10 4.2.7.2.686 [id number] [facility] 2019-08-19 00:00:00 2019-08-19 00:00:00 Orders Only Doctor Unassigned, [place] [facility] 1.2.840.114 350.1.13.10 4.2.7.2.686 [id number] [facility] 2019-08-13 07:52:00 2019-08-13 23:59:00 Hospital Encounter Andreia Nina [facility] 1.2.840.114 350.1.13.10 4.2.7.2.686 [id number] [facility] 2019-08-13 17:01:06 2019-08-13 17:16:06 Tobacco Stripper Hand Visit Pob, Adc Lab Main Andreia Nina [facility] Building 1.2840.114 350.1.13.10 4.2.7.2.686 [id number] [facility] 2019-08-13 15:50:04 2019-08-13 16:43:46 Laboratory Only Pc, Adc Echo Room 1 - [place] [facility] Building 1.20.114 350.1.13.10 4.2.7.2.686 [id number] [facility] 2019-08-13 07:50:52 2019-08-13 07:51:00 Outpatient R ANDREIA NINA [facility] [id number] [facility] 2019-08-13 07:50:00 2019-08-13 07:51:00 Hospital Encounter Andreia Nina [facility] 1.20.114 350.1.13.10 4.2.7.2.686 [id number] [facility] 2019-08-11 00:00:00 2019-08-11 00:00:00 Telephone [place] [facility] Building 1.20.114 350.1.13.10 4.2.7.2.686 [id number] [facility] 2019-08-10 00:00:00 2019-08-10 00:00:00 Orders Only Doctor Unassigned, [place] [facility] 1.2.840.114 350.1.13.10 4.2.7.2.686 [id number] [facility] 2019-08-05 13:20:00 2019-08-05 13:20:00 [id number] 2019-08-05 09:25:23 2019-08-05 09:45:23 [facility] [facility] 1.2840.114 350.1.13.10 4.2.7.2.686 [id number] [facility] 2019-08-04 12:42:00 2019-08-04 14:05:00 Hospital Encounter Andreia Nina [facility] [id number] 350.1.13.10 4.2.7.2.686 [id number] [facility] 2019-08-04 12:35:59 2019-08-04 12:50:59 Tobacco Stripper Hand Visit 1, Adc Lab Andreia Nina [facility] 1.20.114 350.1.13.10 4.2.7.2.686 [id number] [facility] 2019-08-04 12:35:36 2019-08-04 12:39:00 Outpatient R ANDREIA NINA [facility] [id number] [facility] 2019-08-04 12:35:00 2019-08-04 12:39:00 Hospital Encounter Andreia Nina [facility] 1.20.114 350.1.13.10 4.2.7.2.686 [id number] [facility] 2018-11-15 11:14:44 2018-11-15 11:29:44 Nurse Visit Nurse, [facility] Unknown, Attending [facility] [id number] 350.1.13.10 4.2.7.2.686 [id number] [facility] 2018-11-15 00:00:00 2018-11-15 00:00:00 Orders Only Doctor Unassigned, [place] [facility] [id number] 350.1.13.10 4.2.7.2.686 [id number] [facility] Results Test Description Test Time Test Comments Results Result Co mments Source [facility] [id number] 20:03:00* Test Item Value Reference Range Interpretation Comme nts POCT Creatinine (test code = 6690204504) 0.6 mg/dL 0.5-1.1 Lab Interpretation (test cod e = 96698-7) Normal [facility]CT [facility] W WO [id number] 18:36:05CT Abdomen and Pelvis without and with [...] apparent cause in this examination.3. S/P hysterectomy. [facility], Radiant Results Inft User - 11/05/2019 1:37 [...] any apparent cause in this examination.3. S/P hysterectomy.[facility] URINALYSIS, [id number] 15:43:00* Test Item Value Reference Range Interpretation [...] clear Lab Interpretation (test cod e = 88630-0) Abnormal [facility] URINALYSIS, [id number] 15:43:00 * Test Item Value Reference Range [...] clear Lab Interpretation (test cod e = 79195-9) Abnormal [facility] HEPATOBILIARY W [id number] 17:16:19HISTORY: Recurrent abdominal/Epigastric pain. Rule out gallbladderdysfunction [...] beginning ofthe HIDAscan or during CCK infusion. [facility], Radiant Results Inft User - 09/10/2019 12:17 [...] beginning of the HIDAscan or during CCK infusion.[facility] DIAGNOSTIC TOMOSYNTHESIS [id number] 19:36:34 Examination:BI DIAGNOSTIC TOMOSYNTHESIS BILATERAL History:Patient is 58 year old and is seen for: ?Abnormal findings on diagnostic imaging of breast patient states last mammogram was done over 15 yrsago in [facility] . Computer-aided detection (CAD) utilized. Comparisons [...] EvaluationOverall: 0 - Incomplete: Needs Additional [facility]TR[facility] BREAST LIMITED [id number] 19:29:50Examination:BI ULTRASOUND BREAST LIMITED BILATERAL History:Patient is 58 year old and is seen for: ?Abnormal findings on diagnostic imaging of breast ?patient states last mammogram was done over 15 yrs ago in [facility] . ? Comparisons : None available [...] Bilateral ? BI-RADS Category: Both 2 - [facility]Un[facility] HEAD [id number] 20:17:59Multiple bilateral solid nodules measuring up to [...] Preliminary Report Dictated by Resident: Prem Ruff ?MD. Pollo, have reviewed this study and agree with [...] TI-RADS risk category: TR 4 (4-6 points)* ACRTI-RADS recommendation: No further follow-up.Nodule#: 3* Maximum size: 1.0 cm* Location: Upper - Left thyroid lobe* Composition: Solid/almost completely solid (2)* Echogenicity: Isoechoic (1) .* Shape: Not taller than wide (0)* Margins: Ill defined (0)* Echogenic foci: Punctate echogenic foci (3)* ACR TI-RADS total points: 6 * ACR TI-RADS risk category: TR 4 (4-6 points)* ACR TI-RADS recommendation: Follow-up ultrasound in 1 year.Nodule#: 4* Maximum size: 1.0 cm* Location: Lower - Left thyroid lobe* Composition: Solid/almost completely solid (2)* Echogenicity: Hypoechoic (2) .* Shape: Not taller than wide (0)* Margins: Ill defined (0)* Echogenic foci: None (0)* ACR TI-RADS total points: 4 *ACR TI-RADS risk category: TR 4 (4-6 points)* ACR TI-RADS recommendation: Follow-up ultrasound in 1year.Additional bilateral cystic subcentimeter nodules are seen likelyrepresenting colloid cysts.LYMPH NODES: Bilateral morphologically normal lymph nodes are notedmeasuring up to 1.0 cm in long axison the right side and 1.7 cm in longaxis on the left side.IMPRESSIONMultiple bilateral solid nodules measuring up to 1.0 cm in the left sidewith multiple foci of calcification consistent with TI-RADS4, requiringannual follow based on ACR TI-RADS Guidelines. ACR TI-RADS recommendations* TR5 (?7 points) -FNA if >/= 1cm, follow-up if 0.5 -0.9 cm every yearfor 5 years* TR4 (4- 6 points) -FNA if >/= 1.5cm, follow-upif 1 -1.4 cm in 1, 2, 3and 5 years* TR3 (3 points)-FNA if >/= 2.5cm, follow-up if 1.5 -2.4 cm in1, 3 and 5years* TR2 (2 points) & TR1 (0 points) -No FNA or follow-upPreliminary Report Dictated by Resident: Prem Galan MD., have reviewed this study and agree with the abovereport.[facility] CenterXR KNEE 3 VW RIGHT 2019-08-26 20:11:56Mild osteoarthrosis EXAM: Right knee 3 views HISTORY: Effusion of knee, unspecified laterality spoke with physiciantara she specified right knee ?Received faxed orders for knee xray ?.spoke with physician tara she specified right knee TECHNIQUE:AP, lateral, oblique view of the right knee is obtained. FINDINGS:No acute fracture or dislocation is seen. Minimal narrowing of themedial and patellofemoral joint is seen. No bone lesion is seen. Softtissues are normal. No suprapatellar joint effusion is suspected. [facility], Radiant Results Inft 08/26/2019 3:13 PM CDTEXAM: Right knee 3 [...] normal. No suprapatellar joint effusion is suspected.IMPRESSIONMild osteoarthrosisUnBaylor Scott and White Medical Center – FriscoXR CHEST 2 [id number] 20:10:51No acute cardiopulmonary disease. CHEST 2 VIEWS: HISTORY: Multiple lung nodules Received faxed orders for chest 2 views; TECHNIQUE:: ?PA and lateral views of the chest are obtained. COMPARISON: October 04, 2019 FINDINGS: The lungs are hyperinflated but clear. The heart size andmediastinal silhouette are normal. No pleural effusion or pneumothorax isseen. [facility], Radiant Results Inft User - 08/26/2019 3:11 PM CDTCHEST 2 VIEWS:HISTORY: Multiple lung nodules Received faxed orders for chest 2 views;TECHNIQUE:: PA and lateral views of the chest are obtained.COMPARISON: October 04, 2019FINDINGS: The lungs are hyperinflated but clear. The heart size andmediastinal silhouette are normal. No pleural effusion or pneumothorax isseen.IMPRESSIONNo acute cardiopulmonary disease.[facility] CenterCT ABDOMEN PELVIS W WO [id number] 15:24:54CT Abdomen and Pelvis with oral and [...] in CT scan of abdomen and pelvis. [facility], Radiant Results Inft User - [...] detected in CT scan of abdomen and pelvis.[facility] CenterCT THORAX W [id number] 15:19:53HISTORY: No clinical history available. TECHNIQUE: Contrast-enhanced 64[facility]idetector CT [facility] was[facility] with intravenous injection of ?Omnipaque-350 non [...] of hemangioma in L1, T12, T10, T9, B6diirxycxi bodies. No compression fractures seen in the [...] completeevaluation, thyroid ultrasound study should be obtained. [facility], Radiant Results Inft User - [...] of hemangioma in L1, T12, T10, T9, D4mtuzdbwfd bodies. No compression fractures seen in the [...] gland. For completeevaluation,thyroid ultrasound study should be obtained.[facility] CenterFERRITIN [id number] 20:33:00* Test Item Value Reference Range Interpretation Comme nts FERRITIN (test code = 9938640342) 33.1 ng/mL 11-264 VINNY (test code = VINNY) Biotin has been reported to cause a negative bias, interpret results relative to patient's use of biotin. Lab Interpretation (test code = 19032-8) Normal [facility] CenterTHYROID STIMULATING [id number] 20:28:00 * Test Item Value Reference Range Interpretation Comme nts TSH (test code = 7768787443) See_Comment [Automated messa ge] The system which generated this result transmitted reference range: 0.45 - 4.70 mIU/L. The reference range was not used to interpret this result as normal/abnormal. Lab Interpretation (test code = 25242-0) Normal [facility] CenterFREE [id number] 20:15:00* Test Item Value Reference Range Interpretation Comme nts FREE T4 (test code = 9148347432) 0.95 ng/dL 0.78-2.2 Lab Interpretation (test cod e = 78544-2) Normal [facility] CenterSEDIMENTATION [id number] 20:09:00* Test Item Value Reference Range Interpretation Comme nts ESR (test code = 3087048332) See_Comment [Automated messa ge] The system which generated this result transmitted reference range: 0 - 20 mm/HR. The reference range was not used to interpret this result as normal/abnormal. Lab Interpretation (test code = 84900-6) Normal [facility] CenterLIPASE2020-05-05 20:00:00* Test Item Value Reference Range Interpretation Comme nts LIPASE (test code = 1584267772) 93 U/L 0-220 Lab Interpretation (test cod e = 58991-1) Normal [facility] CenterCOMP. METABOLIC PANEL (97151)2019-08-04 20:00:00* Test Item Value Reference Range Interpretation Comme nts NA (test code = 4784125485) 142 mmol/L 135-145 K (test code = 5309059461) 4.2 mmol/L 3.5-5 CL (test code = 3818076896) 101 mmol/L 98-108 CO2 TOTAL (test code = 9052690245) 31 mmol/L 23-31 AGAP (test code = 7267117269) 2-16 BUN (test code = 2966700773) 12 mg/dL 7-23 GLUCOSE (test code = 8303299211) 92 mg/dL 70-110 CREATININE (test code = 1370634176) 0.61 mg/dL 0.5-1.04 TOTAL BILI (test code = 6591757199) 0.6 mg/dL 0.1-1.1 CALCIUM (test code = 2377295488) 10.6 mg/dL 8.6-10.6 T PROTEIN (test code = 4127891604) 8.0 g/dL 6.3-8.2 ALBUMIN (test code = 8860642121) 4.9 g/dL 3.5-5 ALK PHOS (test code = 9289366193) 67 U/L 34-122 ALTv (test code = 1742-6) 15 U/L 5-35 AST(SGOT) (test code = 1460719197) 28 U/L 13-40 eGFR Calculation (Non-) (test code = 7038058799) mL/min/1.73m2 eGFR Calculation () (test code = 1414686100) mL/min/1.73m2 VINNY (test code = VINNY) Association [...] or urine or abnormalities in imaging tests). [facility] CenterAMYLASE2020-05-05 19:59:00* Test Item Value Reference Range Interpretation Kalina WAN (test code = 3398823117) 53 U/L 35-110 Lab Interpretation (test cod e = 03539-2) Normal [facility] CenterBILI UNCONJUGATED/BILI [id number] 19:59:00* Test Item Value Reference Range Interpretation Comme nts BILI CONJ (test code = 5375521020) 0.0 mg/dL 0-0.3 BILI UNCON (test code = 5439624299) 0.7 mg/dL 0.1-1.1 Lab Interpretation (test cod e = 15892-0) Normal [facility] CenterD-[id number] 19:57:00* Test Item Value Reference Range Interpretation Comments D-DIMER (test code = 2286306779) See_Comment H [Automated message] The system which [...] a diagnosis. Lab Interpretation (test code = 58780-5) Abnormal [facility] CenterGLYCOSYLATED HEMOGLOBIN (A1C)2019-08-04 19:48:00* Test Item [...] ?Diabetes Indicated Lab Interpretation (test code = 58293-8) Normal [facility] CenterURINALYSIS2020-05-05 19:40:00* Test Item Value Reference Range Interpretation Comme nts APPEARANCE (test code = 3645026326) Clear Clear COLOR (test code = 3661478002) Straw Yellow A PH (test code = 8262908925) 4.8-8.0 SP GRAVITY (test code = 4336831514) 1.003-1.030 GLU U QUAL (test code = 8197251506) Normal Normal BLOOD (test code = 4916729947) 1+ Negative A KETONES (test code = 0110392425) Negative Negative PROTEIN (test code = 2887-8) Negative Negative UROBILIN (test code = 4644151839) Normal Normal BILIRUBIN (test code = 4718232903) Negative Negative NITRITE (test code = 2560630233) Negative Negative LEUK SHAY (test code = 8289903983) Negative Negative RBC/HPF (test code = 6477856121) See_Comment [Automated messa ge] The system which generated this result transmitted reference range: 0 - 3 HPF. The reference range was not used to interpret this result as normal/abnormal. WBC/HPF (test code = 0553490989) See_Comment [Automated messa ge] The system which generated this result transmitted reference range: 0 - 5 HPF. The reference range was not used to interpret this result as normal/abnormal. BACTERIA (test code = 5996169875) Negative Negative SQ EPITH (test code = 7852352220) HPF Lab Interpretation (test code = 32282-3) Abnormal [facility] CenterCBC WITH [id number] 19:35:00* Test Item Value Reference Range Interpretation Comme nts WBC (test code = 6690-2) See_Comment [Automated messa ge] The system which generated this result transmitted reference range: 4.30 - 11.10 10*3/?L. The reference range was not used to interpret this result as normal/abnormal. RBC (test code = 789-8) See_Comment [Automated messa ge] The system which generated this result [...] 32.9 g/dL 31.6-35.1 RDW-SD (test code = 83650-1) 47.8 fL 39-49.9 RDW-CV (test code = 788-0) 13.5 % 12-15.5 PLT (test code = 777-3) See_Comment H [Automated ZOGOtennisa ge] The system which generated this result transmitted reference range: 166 - 358 10*3/?L. The reference range was not used to interpret this result as normal/abnormal. MPV (test code = 09645-5) 9.2 fL 9.5-12.9 L NRBC/100 WBC (test code = 8930834781) See_Comment [Automated Swift Shift ssage] The system which generated this result transmitted reference range: 0.0 - 10.0 /100 WBCs. The reference range was not used to interpret this result as normal/abnormal. NRBC x10^3 (test code = 9225628399) <0.01 See_Comment [Automated ZOGOtennisa ge] The system which generated this result transmitted reference range: 10*3/?L. The reference range was not used to interpret this result as normal/abnormal. GRAN MAT (NEUT) % (test code = 770-8) 55.8 % IMM GRAN % (test code = 1194387731) 0.20 % LYMPH % (test code = 736-9) 32.6 % MONO % (test code = 5905-5) 8.3 % EOS % (test code = 713-8) 2.1 % BASO % (test code = 706-2) 1.0 % GRAN MAT x10^3(ANC) (test code = 1209127733) 3.23 10*3/uL 1.88-7.09 IMM GRAN x10^3 (test code = 2519285366) <0.03 0-0.06 LYMPH x10^3 (test code = 731-0) 1.89 10*3/uL 1.32-3.29 MONO x10^3 (test code = 742-7) 0.48 10*3/uL 0.33-0.92 EOS x10^3 (test code = 711-2) 0.12 10*3/uL 0.03-0.39 BASO x10^3 (test code = 704-7) 0.06 10*3/uL 0.01-0.07 Lab Interpretation (test code = 07095-9) Abnormal [facility] CenterUS ABDOMEN [id number] 18:44:20HISTORY: ? Abdominal pain. TECHNIQUE: Upper abdominal [...] gallbladder lumen could be sign of dysfunctioninggallbladder. [facility], Radiant Results Inft User - 08/04/2019 1:45 [...] the gallbladder lumen could be sign of dysfunctioninggallbladder.[facility] CHEST 2 2019-08-04 18:10:22HISTORY: Localized swelling/mass/lump. TECHNIQUE: [...] CONCLUSIONS: No signs of acute cardiopul monary disease.[facility], Radiant Results Inft User - 08/04/2019 1:11 [...] cardiac size.CONCLUSIONS: No signs of acute cardiopulmonary disease.[facility] CERVICAL SPINE 2 [id number] 18:09:25HISTORY: Anesthesia of skin. FINDINGS: AP and [...] disc disease anduncovertebral joint degenerative diseaseat C5-C6. [facility], Radiant Results Inft User - [...] disc disease anduncovertebral joint degenerative diseaseat C5-C6. [facility] Notes Date/Time Note Provider Source 2024-01-26 00:00:00 Pt discharged with diagnosis of muscle strain of LUE, L upper arm pain, and acute cystitis with hematuria. Printed and verbal instructions reviewed with and given to pt. Prescriptions given x 3. Pt verbalized understanding of teaching, medication, and recommended follow-up. Denies questions or concerns at this time. Pt ambulatory at discharge. Appears in no apparent distress. No ataxia noted. Francisca Perez RN [facility] [place] 2024-01-25 17:48:15 Patient reports left upper arm/shoulder pain for a month, then she had right hand swelling and discoloration, and the other day her left hand knuckles were painful and swollen. She states she had blood drawn 3 days ago and x-rays yesterday. Charles Whitney RN [facility]
[2024-02-03 18:13] VITALS: BMI 29.0
[2024-02-03] MEDS: ASPIRIN 81 MG CHEWABLE TABLET ONE (18:34)
[2024-02-03] MEDS: AMLODIPINE 5 MG TAB PO ONE (18:42)
[2024-02-03] MEDS: ASPIRIN EC 81 MG TAB PO ONE (18:47)
[2024-02-03 19:20] LABS: Absolute Basophils 0.1 K/uL (0-0.5); Absolute Eosinophils 0.3 K/uL (0-0.5); Absolute Lymphocytes (CBC) 1.6 K/uL (0.7-4.9); Absolute Monocytes 0.6 K/uL (0.1-1.3); Absolute Neutrophil 3.4 K/uL (1.8-8.0); Basophils % 1.3 % (0-1.3); Eosinophils % 4.9 % (0-4.4); Hematocrit 40.8 % (36.0-45.0); Hemoglobin 13.9 g/dL (12.0-15.0); Lymphocytes % 27.4 % (15.3-44.8); MCH 31.2 pg (27.0-35.0); MCHC 34.1 g/dL (32.0-36.0); MCV 91.4 fL (80-100); MPV 7.2 fL (7.6-11.3); Monocytes % 9.5 % (3.3-12.3); Neutrophils % 56.9 % (41.7-73.7); Nucleated Red Blood Cells % 0.1 % (0-0); Platelets 445 thou/uL (152-406); RBC Red Blood Cell Count 4.46 M/uL (3.86-4.86); Red Cell Distribution Width 14.4 % (12.1-15.2)
[2024-02-03 20:27] VITALS: O2SAT 96
[2024-02-03 20:32] LABS: Albumin 3.7 g/dL (3.4-5.0); Anion Gap 7.6 mEq/L (5.0-15.0); Bilirubin Total 0.4 mg/dL (0.2-1.0); Globulin 3.6 g/dL (2.3-3.5); Potassium 3.6 mEq/L (3.5-5.1); Protein, Total 7.3 g/dL (6.4-8.2); Thyroid Stimulating Hormone 1.01 uIU/mL (0.358-3.740); Troponin High Sensitivity 6.8 pg/mL (<58.9)
[2024-02-03 20:38] LABS: Rheumatoid Factor NEG (NEG)
[2024-02-03] MEDS: METOPROLOL TAR 25 MG TAB PO SCH (20:44)
[2024-02-03] MEDS: MELOXICAM 7.5 MG TAB PO ONE (20:45)
[2024-02-03] MEDS: ENOXAPARIN 40 MG/0.4 ML SQ SCH (20:46)
--- NOTE | 2024-02-03 21:55 | RAD REPORT ---
Procedure: Chest Pa And Lat (2 Views) HISTORY: Shortness of breath COMPARISON: none FINDINGS: On the frontal view the right lung base is hazy. No corresponding abnormality seen on the lateral view. Lungs are moderately hyperaerated. No significant pleural effusion noted. The heart is normal size. IMPRESSION: The right lung base is hazy on the frontal view. No corresponding abnormality seen on the lateral vie w. This may represent prominent epicardial fat. Unenhanced CT chest would be helpful for further evaluation.
[2024-02-04] MEDS: ACETAMINOPHEN 500 MG TAB PO PRN ×2 (01:33→12:26)
--- NOTE | 2024-02-04 06:38 | HP ---
Date of Admission: 02/03/2024 Chief Complaint: High blood pressure, shortness of breath. History Of Present Illness: This is a 63-year-old female patient, who came into office for the initi al office visit and so far she has been seeing a nurse practitioner in [facility] and reported that as of t his year, she has been feeling tired, so in August of this year, she saw this nurse practitioner and th e patient was advised by her to get hormone pellets implantation done which included testosterone and estrogen hormone, which she had it in August of this year. Since that time, her fatigue tiredness has not improved any at all, but since that time, she has been having other symptoms which are ongoing a nd the patient says that her face feels red and flushed. She feels like she might have rash on her b sravan. She feels short of breath when she does any activity with extremely high blood pressure, althou gh she denies any chest pain. She is also having bilateral hand swelling and stiffness and also has some left arm pain. About a week to 10 days ago, she went to [facility] and e had venous Doppler of left upper extremity, which was negative for DVT. X-ray of the cervical spin e had shown some changes of degenerative changes and she was sent home with cephalexin, ibuprofen, an d tramadol, and she has discontinued all this medication after completing the course, so when I saw h er today, only medication she was taking was [place] Thyroid. She is also complaining of having some palpitation type of feeling off and on since August of this year. When I evaluated her at the office, manual blood pressure was 92/94 and there were some irregularities in her heart rhythm and the patien t was admitted to the hospital to telemetry for further evaluation and management of this problem. T he patient denies any leg swelling. No paroxysmal nocturnal dyspnea or orthopnea. Allergies: TO TEQUIN CAUSING RASH. 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 Review of Systems: Cardiovascular: As mentioned above. Musculoskeletal: As mentioned above. All other systems reviewed and negative. Past Medical History: Significant for cervical spinal stenosis, back pain, history of anemia, anxiet y, recurrent urinary tract infection, constipation, hypothyroidism, and recurrent bronchitis. Past Surgical History: She had ureter stent placement on the left side in 2014, hysterectomy in 2001 , right shoulder surgery in 2008. Family History: Father , had cancer of esophagus and hypertension. Mother , had kidney dise ase. Social History: Negative for smoking. Use of alcohol, rarely. Physical Examination: Vital Signs: When I saw her at office, manual blood pressure was 192/94, pulse 72 with some irregula rities in the rhythm, temperature 97.8, respiratory rate 15. Weight 180 pounds, height 66 inches. General: Awake, alert, oriented, not in distress. HEENT: Head atraumatic, normocephalic. Conjunctivae nonerythematous. Sclerae white. Mouth, no thr ush or edema noted. Ears/Nose, no mass, lesion, discharge noted. Neck: Supple. No JVD, lymph nodes, bruit, thyromegaly noted. Lungs: Bilateral good equal air entry. Clear to auscultation. No rhonchi. No rales. Heart: Sounds normal. No murmur. No gallop. Some irregular rhythm noted when I was examining her. Abdomen: Soft, bowel sounds normal. No guarding, rigidity, tenderness, mass, hepatosplenomegaly, dis tention, or bruit noted. Extremities: No leg edema. No calf tenderness. Skin: No rash, ulcer, cellulitis. Lymphatics: No lymph node enlargement in neck, supraclavicular, infraclavicular region. Neuro: No focal neurological deficit. Chest: Unremarkable. External Genitalia: Deferred. Rectal: Deferred. Musculoskeletal: Exam shows mild swelling of both hands. Laboratory Data: After the patient was admitted to the hospital, blood work shows WBC , he moglobin , platelets , sodium , potassium , chloride __, bicarb , BUN , creatinine , glucose , liver function test s , proBNP , troponin , TSH . EKG had shown normal sinus rhy thm. Chest x-ray, . Impression: 1.Hypertension, uncontrolled, symptomatic. 2.Rule out cardiac arrhythmia. 3.Osteoarthritis, multiple sites. 4.Cervical spondylosis. 5.Hypothyroidism. Plan: We will go ahead and admit the patient to hospital for further evaluation and management of th is problem. The patient will be admitted for observation to telemetry unit. Plan is to start her on antihypertensive medication. Monitor blood pressure and make adjustment as it becomes necessary and we will start with amlodipine 5 mg x1 dose and metoprolol 25 mg twice a day. Monitor her on telemet ry unit for any kind of cardiac arrhythmia. Lovenox 40 mg subcutaneous injection daily was ordered t o be given at bedtime for DVT prophylaxis, but when nurse was ready to give it, the patient refused t o take that injection. We will get a lipid profile done tomorrow morning. Echocardiogram with Doppl er will be done tomorrow morning and I will see her tomorrow for followup. I also ordered rheumatoid factor with initial blood work result, we will follow up on the result. I will see her tomorrow eitan funmi for followup. Total time spent today was 90 minutes that includes evaluation and management don e at the office as well as making arrangements for the hospital admission and [facility] ADRIANE/MODL Voice ID: [id number]
[2024-02-04] MEDS: AMLODIPINE 5 MG TAB PO SCH (08:11)
[2024-02-04] MEDS: ASPIRIN EC 81 MG TAB PO SCH (08:11)
--- NOTE | 2024-02-04 08:26 | RAD REPORT ---
EXAM:Thorax Wo Con CLINICAL INDICATION: Abnormal chest x-ray TECHNIQUE: CT chest performed.. Axial, sagittal and coronal reconstructions were obtained. One or mor e of the following dose reduction techniques were used: Automated exposure control, adjustment of the mA and/or kV according to the patient size, and/or iterative reconstruction. Unless otherwise specified, incidental findings do not require dedicated imaging follow-up. [id number]. COMPARISON: Chest x-ray February 03, 2024 FINDINGS: Minimal nodularity right upper lobe not significant. Otherwise lungs are clear. No mediastinal or hilar lymphadenopathy No pleural effusion. No pericardial effusion. Mild coronary arterial calcification. IMPRESSION: No acute abnormalities displayed Haziness of the right lung is secondary to normal epicardial fat
[2024-02-04 08:28] VITALS: TEMP 97.3
--- NOTE | 2024-02-04 10:23 | RAD REPORT ---
EXAM: CT brain without contrast HISTORY: Headache COMPARISON: July 2023 TECHNIQUE: Multiple contiguous axial images were obtained and a CT of the brain without contrast.. Sagittal and coronal reconstruction performed. Automated exposure control, adjustment of the mA and/or kV according to patient size, and/or iterative reconstruction. Unless otherwise specified, incidental f indings do not require dedicated imaging follow-up FINDINGS: Increased density is present within the right and left cavernous sinus is a little bit more prominent than usually seen. An intracranial bleed is not seen Ventricles are normal caliber No extra-axial fluid collection noted No significant hypodensity within the brain No fluid within the visualized sinuses or mastoids noted. IMPRESSION: Increased density within the right and left cavernous sinus is a little bit more prominent than usual ly seen and may simply represent normal confluence of vascular structures. A subtle mass can have a similar appearance. It is recommended that patient have an MRI of the brain with contrast for further evaluation.
[2024-02-04] MEDS: LORazepam 2 MG/ML VIAL IV ONE (11:29)
--- NOTE | 2024-02-04 12:18 | EKG ---
Test Date: 2024-02-03 Test Time: 19:37:55 Chestnut Tanner: ELIUD MEASUREMENT RESULTS: Intervals: Rate: 67 OK: 168 QRSD: 76 QT: 392 QTc: 414 [place]: P: 76 OK: 168 QRS: 82 T: 71 INTERPRETIVE STATEMENTS: Normal sinus rhythm Normal ECG No previous ECG available for comparison Electronically Signed On 02-04-24 12:16:22 DIRECTOR HEMATOLOGY by Greg Gibbs
--- NOTE | 2024-02-04 12:24 | RAD REPORT ---
EXAMINATION: MRI BRAIN WITHOUT AND WITH CONTRAST CLINICAL INDICATION: Headache TECHNIQUE: Multiplanar multisequence MR images of the brain were obtained without and with intravenous contrast. 18 cc Magnevist administered intravenously. COMPARISON: Head CT February 04, 2024 No significant abnormal signal within the brain. The cavernous sinus demonstrates normal signal and enhancement. No abnormality noted. Diffusion weighted/ADC mapping images do not reveal evidence of an acute infarction Ventricles are normal caliber No extra-axial fluid collection No fluid within the visualized sinuses/mastoids. IMPRESSION: No acute intracranial abnormality seen.
[2024-02-04 16:12] VITALS: BP 136/63
[2024-02-04] MEDS: MELOXICAM 7.5 MG TAB PO ONE (16:41)
--- NOTE | 2024-02-05 09:02 | ECHO ---
HEIGHT: 5 ft 6 in WEIGHT: 180 lb 0 oz DATE OF STUDY: 02/04/[address]: Zbigniew Hardwick MD 2-DIMENSIONAL: YES M.MODE: YES DOPPLER: YES COLOR FLOW: YES TDS: NO PORTABLE: YES DEFINITY: NO BUBBLE STUDY: NO DIAGNOSIS: CARDIAC ARRHYTHMIA CARDIAC HISTORY: CATHERIZATION: NO SURGERY: NO PROSTHETIC VALVE: NO PACEMAKER: NO MEASUREMENTS (cm) DIASTOLIC (NORMALS) SYSTOLIC (NORMALS) IVSd 1.0 (0.6-1.2) LA Diam 3.1 (1.9-4.0) LVEF 60-65% LVIDd 4.3 (3.5-5.7) LVIDs 2.8 (2.0-3.5) %FS 35% LVPWd 1.1 (0.6-1.2) Ao Diam 3.1 (2.0-3.7) 2 DIMENSIONAL ASSESSMENT: RIGHT ATRIUM: NORMAL LEFT ATRIUM: MILDLY DILATED RIGHT VENTRICLE: NORMAL LEFT VENTRICLE: NORMAL TRICUSPID VALVE: TRACE TRICUSPID REGURGTATION MITRAL VALVE: TRACE MITRAL REGURGTATION PULMONIC VALVE: NORMAL AORTIC VALVE: TRACE AORTIC REGURGITATION PERICARDIAL EFFUSION: NONE AORTIC ROOT: NORMAL LEFT VENTRICULAR WALL MOTION: NORMAL. DOPPLER/COLOR FLOW: NORMAL. COMMENTS: 1. NORMAL LEFT VENTRICULAR SYSTOLIC FUNCTION. LEFT VENTRICULAR EJECTION FRACTION 60-65%. NORMAL WALL MOTION. 2. NORMAL DIASTOLIC FUNCTION. TECHNOLOGIST: JUANITA OLSON
== END 2024-02-04 17:30 | disposition home or self-care (01) ==
LOC: 2ND 18:01
PROVIDERS: ADMIT Internal Medicine; ATTEND Internal Medicine
DX: I49.9 Cardiac arrhythmia, unspecified (principal); I10 Essential (primary) hypertension; R06.02 Shortness of breath; M79.602 Pain in left arm; M79.89 Other specified soft tissue disorders; M25.642 Stiffness of left hand, not elsewhere classified; M25.641 Stiffness of right hand, not elsewhere classified; E03.9 Hypothyroidism, unspecified; M47.892 Other spondylosis, cervical region; M19.90 Unspecified osteoarthritis, unspecified site; Z80.0 Family history of malignant neoplasm of digestive organs; Z84.2 Family history of other diseases of the genitourinary system; Z87.440 Personal history of urinary (tract) infections
CPT/HCPCS: 93005; 93306; 85025; 36415 ×2; 83735; 86430; 80061; 84443; 84484; 84439; 82607; 80053; 82306; 83880; 70450; 71250; 71046; 70553; A9577; G0378; G0379; J1650

== ENCOUNTER 2024-04-11 09:08 | Emergency (ER) | payer BC ==
--- OUTSIDE RECORDS SUMMARY | 2024-04-11 09:12 | XMS REPORT | Continuity of Care Document ---
Author Name Unknown Address [address] [facility]. [address] [place] [address] [facility] Address [address] [facility] [address] [place] [address] Care Team Providers Care Dukey Rider Name Role Phone PCP, PATIENT DOES NOT HAVE A Primary Care Physic blessing Unavailable TYLER ESTRADA Attending Clinician Unavailab TYLER Crane Attending Clinician Unavailab DALILA Rowan Attending Clinician Unavailable KORINA WILLARD Attending Clinician Unavailable KORINA WILLARD Attending Clinician Unavailable Hallie PIT SUPERVISOR, Korina Attending Clinician [phone] HEATHER MILES Attending Clinician Unavailable Heather Miles MD Attending Clinician [phone] Unknown, Attending Attending Clinician Unavailab JHOAN Wheeler Attending Clinician Unavailable NAIDA TRAYLOR Attending Clinician Unavailable Jhoan Lynn MD Attending Clinician [phone] Gramm Indu REAGAN Attending Clinician [phone] SHAHLA INDU Lorelei Attending Clinician Unavailable LEÓN FALLON Attending Clinician Unavailable Doctor Unassigned, Ivalee Attending Clinician Jimy Nolan MD Attending Clinician + [phone] JIMY ARENAS Attending Clinician UnaAndreia Vasquez Attending Clinician + [phone] ANDREIA NINA Attending Clinician Unavail able LOYDA [...] Number Effective Date Expirati on Date Source [facility] [id number] 2017 00:00:00 Problems Condition Name Condition Details Condition Category Status Onset Date Resolution Date Last Treatment Date Treating Clinician Comments Source No known active problems No known active problems Disease [facility] Allergies, Adverse Reactions, Alerts Allergy Name Allergy Type Status Severity Reaction(s) Onset Date Inactive Date Treating Clinician Comments Source GATIFLOX ACIN DRUG INGREDI Active Rash 07-25 00:00: 00 [facility] Gatiflox acin Propensi ty to adverse reaction s Active Rash 07-25 00:00: 00 [facility] Social History Social Habit Start Date Stop Date Quantity Comments Source Exposure to SARS-CoV-2 (event) Not sure [facility] beverage intake 2024-01-25 00:00:00 2024-01-25 00:00:00 Current drinker of alcohol (finding) [facility] Tobacco use and exposure 2023-11-18 00:00:00 2023-11-18 00:00:00 Smokeless tobacco non-user [facility] History of Social function 2023-11-18 00:00:00 2023-11-18 00:00:00 [facility] History SDOH Alcohol Frequency 2019-11-18 00:00:00 2019-11-18 00:00:00 3 [facility] History SDOH Alcohol Std Drinks 2019-11-18 00:00:00 2019-11-18 00:00:00 99 [facility] History SDOH Alcohol Binge 2019-11-18 00:00:00 2019-11-18 00:00:00 99 [facility] Alcohol intake 2019-11-18 00:00:00 2019-11-18 00:00:00 Current drinker of alcohol (finding) [facility] Sex assigned at [birth year] 00:00:00 [facility] Smoking Status Start Date Stop Date Source Unknown if ever smoked [facility] Never smoked tobacco [facility] Medications Ordered Medication Name Filled Medication Name Start Date Stop Date Current Medication? Ordering Clinician Indication Dosage Frequency Signature (SIG) Comments Components Source ketorolac (TORADOL) injection 15 mg 2023-04 04:00: 00 01-25 03:31 :00 No 15mg 15 mg, Slow IV Push, ONCE, 1 dose, On 01/25/24 at 2300, VELASQUEZ [facility] HYDROcodone -acetaminop hen (NORCO 5) tablet 1 tablet 2023-04 00:15: 00 01-25 00:13 :00 No 1{tbl} 1 tablet, Oral, ONCE, 1 dose, On 01/25/24 at 1915, VELASQUEZ [facility] ibuprofen 600 mg tablet 2023-04 00:00: 00 02-01 04:59 :00 Yes [id number] 600mg Take 1 tablet by mouth every 6 (six) hours as needed for Pain (scale 4-6) for up to 7 days. [facility] cephALEXin 500 mg capsule 2023-04 00:00: 00 01-30 04:59 :00 Yes [id number] 500mg Take 1 capsule by mouth in the morning and 1 capsule in the evening. Do all this for 5 days. [facility] traMADoL 50 mg tablet 2023-04 00:00: 00 01-28 04:59 :00 Yes [id number] 50mg Take 1 tablet by mouth every 6 (six) hours as needed for Pain (scale 7-10) for up to 3 days. Indication s: acute pain [facility] mupirocin 2 % ointment 11-17 00:00: 00 Yes [id number] Apply to area(s) 3 (three) times daily. [facility] cephALEXin 500 mg capsule 11-17 00:00: 00 11-25 04:59 :00 No [id number] 500mg Take 1 capsule by mouth 4 (four) times daily for 7 days. [facility] iohexol (OMNIPAQUE 350 BULK-150 mL) injection 130 mL 11-04 18:30: 00 11-04 18:15 :00 No 130mL 130 mL, Intravenou s, ONCE, 1 dose, Anna 11/05/19 at 1330, Routine [facility] sincalide (KINEVAC) injection 1.4 mcg 09-09 14:15: 09-09 14:15 :00 No 1.4ug 1.4 mcg, IV Push, ONCE, 1 dose, Anna 09/10/19 at 0915, Routine [facility] tc 99m-mebrofe brent injection 9.5 millicurie 09-09 13:15: 00 09-09 13:00 :00 No 9.5mCi 9.5 millicurie , Intravenou s, ONCE, 1 dose, Anna 09/10/19 at 0815, Routine [facility] TRULANCE 3 mg Tab 08-31 00:00: 00 Yes [facility] contrast previously administere d 0 mL 08-12 15:15: 00 08-12 15:02 :00 No Intravenou s, ONCE, 1 dose, Anna 08/13/19 at 1015, Routine [facility] iohexol (OMNIPAQUE 350 BULK-150 mL) injection 120 mL 08-12 15:15: 00 08-12 15:02 :00 No 120mL 120 mL, Intravenou s, ONCE, 1 dose, Anna 08/13/19 at 1015, Routine [facility] No known medications No Un mo ity [facility] No known medications No Un mo ity [facility] No known medications No Un mo ity [facility] No known medications No Un mo ity [facility] No known medications No Un mo ity [facility] No known medications No Un mo ity [facility] No known medications No Un mo ity [facility] No known medications No Un mo ity [facility] No known medications No Un mo ity [facility] No known medications No Un mo ity [facility] No known medications No Un mo ity [facility] No known medications No Un mo ity [facility] No known medications No Un mo ity [facility] No known medications No Un mo ity [facility] No known medications No Un mo ity [facility] No known medications No Un mo ity [facility] No known medications No Un mo [facility]y of [facility] No known medications No Un mo ity of [facility] No known medications No Un mo ity of [facility] No known medications No Un mo ity of [facility] No known medications No Un mo ity of [facility] Vital Signs Vital Name Observation Time Observation Value Comments S ource Systolic blood pressure 2024-01-26 04:50:00 147 mm[Hg] [facility] Diastolic blood pressure 2024-01-26 04:50:00 80 mm[Hg] [facility] Heart rate 2024-01-26 04:50:00 87 /min [facility] Body temperature 2024-01-26 04:50:00 36.78 Christine [facility] Respiratory rate 2024-01-26 04:50:00 15 /min [facility] Oxygen saturation in Arterial blood by Pulse oximetry 2024-01-26 04:50:00 98 /min [facility] Body height 2024-01-25 22:49:00 167.6 cm [facility] Body weight 2024-01-25 22:49:00 79.379 kg [facility] BMI 2024-01-25 22:49:00 28.25 kg/m2 [facility] Systolic blood pressure 2023-11-18 23:14:00 140 mm[Hg] [facility] Diastolic blood pressure 2023-11-18 23:14:00 81 mm[Hg] [facility] Heart rate 2023-11-18 23:14:00 75 /min [facility] Body temperature 2023-11-18 23:14:00 36.61 Christine [facility] Respiratory rate 2023-11-18 23:14:00 16 /min [facility] Body height 2023-11-18 23:14:00 167.6 cm [facility] Body weight 2023-11-18 23:14:00 79.606 kg [facility] BMI 2023-11-18 23:14:00 28.33 kg/m2 [facility] Oxygen saturation in Arterial blood by Pulse oximetry 2023-11-18 23:14:00 97 /min [facility] Systolic blood pressure 2019-11-18 20:05:00 137 mm[Hg] [facility] Diastolic blood pressure 2019-11-18 20:05:00 76 mm[Hg] [facility] Heart rate 2019-11-18 20:05:00 68 /min [facility] Respiratory rate 2019-11-18 20:05:00 14 /min [facility] Body height 2019-11-18 20:05:00 167.6 cm [facility] Body weight 2019-11-18 20:05:00 74.481 kg [facility] BMI 2019-11-18 20:05:00 26.50 kg/m2 [facility] Oxygen saturation in Arterial blood by Pulse oximetry 2019-11-18 20:05:00 95 /min [facility] Systolic blood pressure 2019-10-06 15:43:00 143 mm[Hg] [facility] Diastolic blood pressure 2019-10-06 15:43:00 77 mm[Hg] [facility] Heart rate 2019-10-06 15:43:00 77 /min [facility] Body temperature 2019-10-06 15:38:00 36.83 Christine [facility] Body weight 2019-10-06 15:38:00 73.936 kg [facility] BMI 2019-10-06 15:38:00 26.31 kg/m2 [facility] Systolic blood pressure 2019-08-13 21:18:00 134 mm[Hg] [facility] Diastolic blood pressure 2019-08-13 21:18:00 70 mm[Hg] [facility] Heart rate 2019-08-13 21:18:00 62 /min [facility] Body height 2019-08-13 21:18:00 167.6 cm [facility] Body weight 2019-08-13 21:18:00 73.936 kg [facility] BMI 2019-08-13 21:18:00 26.31 kg/m2 [facility] Systolic blood pressure 2018-11-15 16:18:00 128 mm[Hg] [facility] Diastolic blood pressure 2018-11-15 16:18:00 82 mm[Hg] [facility] Heart rate 2018-11-15 16:18:00 96 /min [facility] Body temperature 2018-11-15 16:18:00 37.22 Christine [facility] Respiratory rate 2018-11-15 16:18:00 17 /min [facility] Body height 2018-11-15 16:18:00 167.6 cm [facility] Body weight 2018-11-15 16:18:00 70.478 kg [facility] BMI 2018-11-15 16:18:00 25.08 kg/m2 [facility] Oxygen saturation in Arterial blood by Pulse oximetry 2018-11-15 16:18:00 97 /min [facility] Procedures Procedure Date / Time Performed Performing Clinician Source TROPONIN I 2024-01-26 00:34:00 Korina Willard [facility] COMP. METABOLIC PANEL (87557) 2024-01-26 00:34:00 Korina Willard [facility] CBC WITH DIFF 2024-01-26 00:34:00 Korina Willard [facility] PROTHROMBIN TIME / INR 2024-01-26 00:34:00 Neel Willard [facility] D-DIMER 2024-01-26 00:34:00 Hallie [facility] URINALYSIS 2024-01-26 00:16:00 Hallie [facility] POCT URINALYSIS 2023-11-18 00:00:00 Heather Miles [facility] CT ABDOMEN PELVIS W WO CONTRAST 2019-11-05 18:27:14 Indu Gale [facility] HB CREATININE BLOOD 2019-11-05 18:12:00 Indu Gale [facility] POCT URINALYSIS AUTO 2019-10-06 15:42:00 Indu Gale [facility] REFERRAL- REQUEST/RESPONSE 2019-09-23 05:01:00 Doctor Unassigned, Ivalee [facility] NM HEPATOBILIARY W INTERVENTION 2019-09-10 14:51:00 Jimy Arenas [facility] NM HEPATOBILIARY W INTERVENTION 2019-09-10 14:51:00 Jimy Arenas [facility] EXTERNAL PROVIDER - ADC REFERRAL 2019-09-09 05:01:00 Doctor Unassigned, Ivalee [facility] BI ULTRASOUND BREAST LIMITED BILATERAL 2019-09-08 18:56:32 Andreia Nina [facility] BI DIAGNOSTIC TOMOSYNTHESIS BILATERAL 2019-09-08 18:39:24 Andreia Nina [facility] AUTHORIZATION FOR RELEASE OF PHI 2019-09-06 05:01:00 Doctor Unassigned, Ivalee [facility] XR KNEE 3 VW RIGHT 2019-08-26 19:54:54 Andreia Nina [facility] US HEAD NECK 2019-08-26 19:49:08 Andreia Nina [facility] XR CHEST 2 VW 2019-08-26 19:10:00 Andreia Nina [facility] EXTERNAL PROVIDER - ADC REFERRAL 2019-08-24 05:01:00 Doctor Unassigned, Ivalee [facility] AUTHORIZATION FOR RELEASE OF PHI 2019-08-21 05:01:00 Doctor Unassigned, Ivalee [facility] REFERRAL- REQUEST/RESPONSE 2019-08-19 05:01:00 Doctor Unassigned, Ivalee [facility] CT ABDOMEN PELVIS W WO CONTRAST 2019-08-13 15:10:01 Andreia Nina [facility] CT THORAX W CONTRAST 2019-08-13 15:07:49 Andreia Nina [facility] EXTERNAL PROVIDER - ADC REFERRAL 2019-08-10 05:01:00 Doctor Unassigned, Ivalee [facility] AMYLASE 2019-08-04 19:05:00 Andreia Nina [facility] LIPASE 2019-08-04 19:05:00 Andreia Nina [facility] FERRITIN SERUM 2019-08-04 19:05:00 Andreia Nina [facility] BILI UNCONJUGATED/BILI CONJUG 2019-08-04 19:05:00 [facility] FREE T4 2019-08-04 19:05:00 [facility] THYROID STIMULATING HORMONE 2019-08-04 19:05:00 Andreia Nina [facility] COMP. METABOLIC PANEL (84711) 2019-08-04 19:05:00 [facility] SEDIMENTATION RATE 2019-08-04 19:05:00 [facility] CBC WITH DIFFERENTIAL 2019-08-04 19:05:00 Deandre Nina [facility] GLYCOSYLATED HEMOGLOBIN (A1C) 2019-08-04 19:05:00 Andreia Nina [facility] D-DIMER 2019-08-04 19:05:00 Andreia Nina [facility] URINALYSIS 2019-08-04 19:05:00 Andreia Nina [facility] US ABDOMEN COMPLETE 2019-08-04 18:41:10 Andreia Nina [facility] XR CHEST 2 VW 2019-08-04 18:04:46 Andreia Nina [facility] XR CERVICAL SPINE 2 VW 2019-08-04 18:04:46 Roberto Nina [facility] PATIENT FINANCIAL POLICY 2018-11-15 15:52:52 Doctor Unassigned, Ivalee [facility] Encounters Start Date/Time End Date/Time Encounter Type Admission Type Attending [facility] Care Department Encounter ID Source 2024-01-25 17:51:00 2024-01-26 00:00:00 Emergency KORINA MOON ERICA [facility] ERT [id number] [facility] 2024-01-25 17:51:00 2024-01-26 00:00:00 Emergency Korina Willard [facility] AT PENDING SALE TO [facility] 1.840.114 350.1.13.10 4.2.7.2.686 [id number] [facility] 2023-11-18 17:20:00 2023-11-18 18:35:40 Outpatient R HEATHER MILES [facility] [id number] [facility] 2023-11-18 17:20:00 2023-11-18 18:35:40 Urgent Care Heather Miles Unknown, Attending [facility] 1.840.114 350.1.13.10 4.2.7.2.686 [id number] [facility] 2020-08-10 09:00:00 2020-08-10 09:00:00 Outpatient LEAH [facility] [id number] [facility] 2020-08-05 08:30:00 2020-08-05 08:30:00 Outpatient R JHOAN LYNN [facility] [id number] [facility] 2019-12-24 13:30:00 2019-12-24 13:30:00 Outpatient R NAIDA TRAYLOR [facility] [id number] [facility] 2019-11-18 14:32:07 2019-11-18 16:01:25 Office Visit Leah Jhoan [facility] 1.840.114 350.1.13.10 4.2.7.2.686 [id number] [facility] 2019-11-18 15:00:00 2019-11-18 15:00:00 Outpatient R JHOAN LYNN [facility] [id number] [facility] 2019-11-06 08:00:00 2019-11-06 08:00:00 Outpatient R NAIDA TRAYLOR [facility] [id number] [facility] 2019-11-05 12:43:09 2019-11-05 23:59:00 Hospital Encounter Indu Gale [facility] [id number] 350.1.13.10 4.2.7.2.686 [id number] [facility] 2019-11-05 00:00:00 2019-11-05 00:00:00 Outpatient R INDU GALE [facility] [id number] [facility] 2019-11-03 15:40:00 2019-11-03 15:40:00 Outpatient R LEÓN FALLON [facility] [id number] [facility] 2019-10-16 00:00:00 2019-10-16 00:00:00 Outpatient R INDU GALE [facility] [id number] [facility] 2019-10-08 08:20:00 2019-10-08 08:20:00 Outpatient R LEÓN FALLON [facility] [id number] [facility] 2019-10-06 10:11:34 2019-10-06 10:45:00 Office Visit Indu Gale [facility] 1.2.840.114 350.1.13.10 4.2.7.2.686 [id number] [facility] 2019-10-06 10:00:00 2019-10-06 10:00:00 Outpatient R INDU GALE [facility] [id number] [facility] 2019-09-23 00:00:00 2019-09-23 00:00:00 Orders Only Doctor Unassigned, Ivalee [facility] 1.2.840.114 350.1.13.10 4.2.7.2.686 [id number] [facility] 2019-09-16 14:00:00 2019-09-16 14:00:00 Outpatient R INDU GALE [facility] [id number] [facility] 2019-09-10 07:43:00 2019-09-10 23:59:00 Hospital Encounter Jimy Tobias [facility] 1.2840.114 350.1.13.10 4.2.7.2.686 [id number] [facility] 2019-09-10 07:42:49 2019-09-10 07:42:00 Outpatient R JIMY TOBIAS [facility] [id number] [facility] 2019-09-10 07:42:00 2019-09-10 07:42:00 Hospital Encounter Rabiadaniprasad johnson Ingridpk [facility] 1.2840.114 350.1.13.10 4.2.7.2.686 [id number] [facility] 2019-09-09 00:00:00 2019-09-09 00:00:00 Orders Only Doctor Unassigned, Ivalee [facility] 1.2840.114 350.1.13.10 4.2.7.2.686 [id number] [facility] 2019-09-08 12:51:00 2019-09-08 23:59:00 Hospital Encounter Andreia Nina [facility] 1.2.840.114 350.1.13.10 4.2.7.2.686 [id number] [facility] 2019-09-08 12:50:25 2019-09-08 12:50:00 Outpatient R ANDREIA NINA [facility] [id number] [facility] 2019-09-08 12:50:00 2019-09-08 12:50:00 Hospital Encounter Andreia Ninadell [facility] 1.2.840.114 350.1.13.10 4.2.7.2.686 [id number] [facility] 2019-09-06 00:00:00 2019-09-06 00:00:00 Orders Only Doctor Unassigned, Ivalee [facility] 1.2.840.114 350.1.13.10 4.2.7.2.686 [id number] [facility] 2019-08-28 14:00:00 2019-08-28 14:00:00 Outpatient R LOYDA LUX SHISDPetra [facility] [id number] [facility] 2019-08-28 08:21:19 2019-08-28 08:41:19 Telemedici ne Visit Loyda Lux [facility] nal Building 1.2.840.114 350.1.13.10 4.2.7.2.686 [id number] [facility] 2019-08-26 13:50:00 2019-08-26 23:59:00 Hospital Encounter Andreia Ninadell [facility] 1.2.840.114 350.1.13.10 4.2.7.2.686 [id number] [facility] 2019-08-26 13:55:36 2019-08-26 14:10:36 [facility] [employer] D[facility]ge Or Barge Visit Pob, Adc Lab Main Andreia Nina [facility] nal Building 1.2.840.114 350.1.13.10 4.2.7.2.686 [id number] [facility] 2019-08-26 13:49:10 2019-08-26 13:49:00 [facility] [id number] 2019-08-26 13:49:00 2019-08-26 13:49:00 Hospital Encounter Andreia Nina [facility] 1.2.840.114 350.1.13.10 4.2.7.2.686 [id number] [facility] 2019-08-26 13:49:00 2019-08-26 13:49:00 Hospital Encounter Andreia Nina [facility] 1.2.840.114 350.1.13.10 4.2.7.2.686 [id number] [facility] 2019-08-24 00:00:00 2019-08-24 00:00:00 Orders Only Doctor Unassigned, Ivalee [facility] 1.2.840.114 350.1.13.10 4.2.7.2.686 [id number] [facility] 2019-08-21 00:00:00 2019-08-21 00:00:00 Telephone [facility] 1.2.840.114 350.1.13.10 4.2.7.2.686 [id number] [facility] 2019-08-21 00:00:00 2019-08-21 00:00:00 Orders Only Doctor Unassigned, Ivalee [facility] 1.2.840.114 350.1.13.10 4.2.7.2.686 [id number] [facility] 2019-08-19 00:00:00 2019-08-19 00:00:00 Orders Only Doctor Unassigned, Ivalee [facility] 1.2.840.114 350.1.13.10 4.2.7.2.686 [id number] [facility] 2019-08-13 07:52:00 2019-08-13 23:59:00 Hospital Encounter Andreia Nina [facility] 1.2.840.114 350.1.13.10 4.2.7.2.686 [id number] [facility] 2019-08-13 17:01:06 2019-08-13 17:16:06 Shore [employer] Dredge Or Barge Visit Pob, Adc Lab Main Andreia Nina [facility] Building 1.2840.114 350.1.13.10 4.2.7.2.686 [id number] [facility] 2019-08-13 15:50:04 2019-08-13 16:43:46 Laboratory Only Pc, Adc Echo Room 1 - [place] Building 1.20.114 350.1.13.10 4.2.7.2.686 [id number] [facility] 2019-08-13 07:50:52 2019-08-13 07:51:00 Outpatient R ANDREIA NINA [facility] [id number] [facility] 2019-08-13 07:50:00 2019-08-13 07:51:00 Hospital Encounter Andreia Nina [facility] 1.20.114 350.1.13.10 4.2.7.2.686 [id number] [facility] 2019-08-11 00:00:00 2019-08-11 00:00:00 Telephone [place] Building 1.20.114 350.1.13.10 4.2.7.2.686 [id number] [facility] 2019-08-10 00:00:00 2019-08-10 00:00:00 Orders Only Doctor Unassigned, Ivalee [facility] 1.2.840.114 350.1.13.10 4.2.7.2.686 [id number] [facility] 2019-08-05 13:20:00 2019-08-05 13:20:00 Out[facility] [id number] [facility] 2019-08-05 09:25:23 2019-08-05 09:45:23 [facility]ici ne [facility] 1.2840.114 350.1.13.10 4.2.7.2.686 [id number] [facility] 2019-08-04 12:42:00 2019-08-04 14:05:00 Hospital Encounter Andreia Nina [facility] 1.2.840.114 350.1.13.10 4.2.7.2.686 [id number] [facility] 2019-08-04 12:35:59 2019-08-04 12:50:59 [facility]ge Visit 1, Adc Lab Andreia Nina [facility] 1.20.114 350.1.13.10 [id number] [id number] [facility] 2019-08-04 12:35:36 2019-08-04 12:39:00 Outpatient R ANDREIA INNA [facility] [id number] [facility] 2019-08-04 12:35:00 2019-08-04 12:39:00 Hospital Encounter Andreia Nina [facility] 1.20.114 [id number] [id number] [facility] 2018-11-15 11:14:44 2018-11-15 11:29:44 Nurse Visit Nurse, [facility] Unknown, Attending [facility] [id number] [id number] [id number] [facility] 2018-11-15 00:00:00 2018-11-15 00:00:00 Orders Only Doctor Unassigned, Ivalee [facility] [id number] [id number] [id number] [id number] [facility] Results Test Description Test Time Test Comments Results Result Co mments Source [facility] [id number] 20:03:00* Test Item Value Reference Range Interpretation Comme nts POCT Creatinine (test code = 7716970649) 0.6 mg/dL 0.5-1.1 Lab Interpretation (test cod e = 31326-6) Normal [facility] CenterCT [facility]OM[facility] PEL[facility] W WO [id number] 18:36:05CT Abdomen and Pelvis without and with [...] apparent cause in this examination.3. S/P hysterectomy. [facility], Radiant Results Inft User - 11/05/2019 [...] any apparent cause in this examination.3. S/P hysterectomy.[facility] URINALYSIS, [id number] 15:43:00* Test Item Value Reference Range Interpretation [...] clear Lab Interpretation (test cod e = 62156-2) Abnormal [facility] URINALYSIS, [id number] 15:43:00 * Test Item Value Reference Range [...] clear Lab Interpretation (test cod e = 11284-0) Abnormal General acute hospital HEPATOBILIARY W [id number] 17:16:19HISTORY: Recurrent abdominal/Epigastric pain. Rule out gallbladderdysfunction [...] beginning ofthe HIDAscan or during CCK infusion. [facility], Radiant Results Inft User - 09/10/2019 [...] beginning of the HIDAscan or during CCK infusion.[facility] DIAGNOSTIC TOMOSYNTHESIS [id number] 19:36:34 Examination:BI DIAGNOSTIC TOMOSYNTHESIS BILATERAL History:Patient is 58 year old and is seen for: ?Abnormal findings on diagnostic imaging of breast patient states last mammogram was done over 15 yrsago in [facility] . Computer-aided detection (CAD) utilized. Comparisons : [...] EvaluationOverall: 0 - Incomplete: Needs Additional Imaging [facility]UnSa[facility] ULTRASOUND BREAST LIMITED [id number] 19:29:50Examination:BI ULTRASOUND BREAST LIMITED BILATERAL History:Patient is 58 year old and is seen for: ?Abnormal findings on diagnostic imaging of breast ?patient states last mammogram was done over 15 yrs ago in [facility] . ? Comparisons : None available HISTORY: [...] Bilateral ? BI-RADS Category: Both 2 - [facility]Un[facility] HEAD [id number] 20:17:59Multiple bilateral solid nodules measuring up to [...] ACR TI-RADS recommendation: Follow-up ultrasound in 1 year.Additional bilateral cystic subcentimeter nodules are seen [...] (4- 6 points) -FNA if >/= 1.5cm, follow-up if 1 -1.4 cm in 1, 2, 3and 5 years* TR3 (3 points)-FNA if >/= 2.5cm, follow-up if 1.5 -2.4 cm in 1, 3 and 5years* TR2 (2 points) & TR1 (0 points) -No FNA or follow-upPreliminary Report Dictated by Resident: Prem Galan MD., have reviewed this study and agree with the abovereport.[facility] CenterXR KNEE 3 VW RIGHT [...] normal. No suprapatellar joint effusion is suspected.IMPRESSIONMild osteoarthrosisUnLake Granbury Medical CenterXR CHEST 2 [id number] 20:10:51No acute cardiopulmonary disease. CHEST 2 VIEWS: HISTORY: Multiple lung nodules Received faxed orders for chest 2 views; TECHNIQUE:: ?PA and lateral views of the chest are obtained. COMPARISON: October 04, 2019 FINDINGS: The lungs are hyperinflated but clear. The heart size andmediastinal silhouette are normal. No pleural effusion or pneumothorax isseen. [facility], Radiant Results Inft User - 08/26/2019 3:11 PM CDTCHEST 2 VIEWS:HISTORY: Multiple lung nodules Received faxed orders for chest 2 views;TECHNIQUE:: PA and lateral views of the chest are obtained.COMPARISON: October 04, 2019FINDINGS: The lungs are hyperinflated but clear. The heart size andmediastinal silhouette are normal. No pleural effusion or pneumothorax isseen.IMPRESSIONNo acute cardiopulmonary disease.[facility] CenterCT ABDOMEN PELVIS W WO [id number] 15:24:54CT Abdomen and Pelvis with oral and [...] in CT scan of abdomen and pelvis. [facility], Radiant Results Inft User - 08/13/2019 [...] detected in CT scan of abdomen and pelvis.[facility] CenterCT THORAX W [id number] 15:19:53HISTORY: No clinical history available. TECHNIQUE: Contrast-enhanced 64-mutidetector CT [facility] of [facility] was[facility] with intravenous injection of ?Omnipaque-350 non [...] of hemangioma in L1, T12, T10, T9, M9mlcrdjtrx bodies. No compression fractures seen in the [...] completeevaluation, thyroid ultrasound study should be obtained. [facility], Radiant Results Inft User - 08/13/2019 [...] of hemangioma in L1, T12, T10, T9, T1orrjnizzb bodies. No compression fractures seen in the [...] gland. For completeevaluation,thyroid ultrasound study should be obtained.[facility] CenterFERRITIN [id number] 20:33:00* Test Item Value Reference Range Interpretation Comme nts FERRITIN (test code = 0757301494) 33.1 ng/mL 11-264 VINNY (test code = VINNY) Biotin has been reported to cause a negative bias, interpret results relative to patient's use of biotin. Lab Interpretation (test code = 37310-6) Normal [facility] CenterTHYROID STIMULATING [id number] 20:28:00 * Test Item Value Reference Range Interpretation Comme nts TSH (test code = 8183063081) See_Comment [Automated messa ge] The system which generated this result transmitted reference range: 0.45 - 4.70 mIU/L. The reference range was not used to interpret this result as normal/abnormal. Lab Interpretation (test code = 90144-1) Normal [facility] CenterFREE [id number] 20:15:00* Test Item Value Reference Range Interpretation Comme nts FREE T4 (test code = 9820097248) 0.95 ng/dL 0.78-2.2 Lab Interpretation (test cod e = 67642-8) Normal [facility] CenterSEDIMENTATION [id number] 20:09:00* Test Item Value Reference Range Interpretation Comme nts ESR (test code = 7506456198) See_Comment [Automated messa ge] The system which generated this result transmitted reference range: 0 - 20 mm/HR. The reference range was not used to interpret this result as normal/abnormal. Lab Interpretation (test code = 87654-8) Normal [facility] CenterLIPASE2020-05-05 20:00:00* Test Item Value Reference Range Interpretation Comme nts LIPASE (test code = 5530590842) 93 U/L 0-220 Lab Interpretation (test cod e = 79322-2) Normal [facility] CenterCOMP. METABOLIC PANEL (67592)2019-08-04 20:00:00* Test Item Value Reference Range Interpretation Comme nts NA (test code = 3705506184) 142 mmol/L 135-145 K (test code = 6141657777) 4.2 mmol/L 3.5-5 CL (test code = 7403232313) 101 mmol/L 98-108 CO2 TOTAL (test code = 6608535925) 31 mmol/L 23-31 AGAP (test code = 5016618243) 2-16 BUN (test code = 1702138274) 12 mg/dL 7-23 GLUCOSE (test code = 3226270634) 92 mg/dL 70-110 CREATININE (test code = 6047419619) 0.61 mg/dL 0.5-1.04 TOTAL BILI (test code = 8672570593) 0.6 mg/dL 0.1-1.1 CALCIUM (test code = 4744752784) 10.6 mg/dL 8.6-10.6 T PROTEIN (test code = 0829918781) 8.0 g/dL 6.3-8.2 ALBUMIN (test code = 9162907395) 4.9 g/dL 3.5-5 ALK PHOS (test code = 8666663797) 67 U/L 34-122 ALTv (test code = 1742-6) 15 U/L 5-35 AST(SGOT) (test code = 8394346384) 28 U/L 13-40 eGFR Calculation (Non-) (test code = 5846081907) mL/min/1.73m2 eGFR Calculation () (test code = 4432306244) mL/min/1.73m2 VINNY (test code = VINNY) Association [...] or urine or abnormalities in imaging tests). [facility] CenterAMYLASE2020-05-05 19:59:00* Test Item Value Reference Range Interpretation Kalina WAN (test code = 2996304517) 53 U/L 35-110 Lab Interpretation (test cod e = 50699-2) Normal [facility] CenterBILI UNCONJUGATED/BILI [id number] 19:59:00* Test Item Value Reference Range Interpretation Comme nts BILI CONJ (test code = 3482347998) 0.0 mg/dL 0-0.3 BILI UNCON (test code = 4816796563) 0.7 mg/dL 0.1-1.1 Lab Interpretation (test cod e = 49200-6) Normal [facility] CenterD-[id number] 19:57:00* Test Item Value Reference Range Interpretation Comments D-DIMER (test code = 1333269524) See_Comment H [Automated message] The system which [...] a diagnosis. Lab Interpretation (test code = 10246-9) Abnormal [facility] CenterGLYCOSYLATED HEMOGLOBIN (A1C)2019-08-04 19:48:00* Test [...] ?Diabetes Indicated Lab Interpretation (test code = 55559-3) Normal [facility] CenterURINALYSIS2020-05-05 19:40:00* Test Item Value Reference Range Interpretation Comme nts APPEARANCE (test code = 8623317817) Clear Clear COLOR (test code = 7189766074) Straw Yellow A PH (test code = 2678627832) 4.8-8.0 SP GRAVITY (test code = 2302206884) 1.003-1.030 GLU U QUAL (test code = 5194185082) Normal Normal BLOOD (test code = 8746990343) 1+ Negative A KETONES (test code = 0902645747) Negative Negative PROTEIN (test code = 2887-8) Negative Negative UROBILIN (test code = 4351032771) Normal Normal BILIRUBIN (test code = 3442693271) Negative Negative NITRITE (test code = 7125602813) Negative Negative LEUK SHAY (test code = 7232276282) Negative Negative RBC/HPF (test code = 4146401309) See_Comment [Automated messa ge] The system which generated this result transmitted reference range: 0 - 3 HPF. The reference range was not used to interpret this result as normal/abnormal. WBC/HPF (test code = 1975117950) See_Comment [Automated messa ge] The system which generated this result transmitted reference range: 0 - 5 HPF. The reference range was not used to interpret this result as normal/abnormal. BACTERIA (test code = 1457084174) Negative Negative SQ EPITH (test code = 2472911355) HPF Lab Interpretation (test code = 58608-6) Abnormal [facility] CenterCBC WITH [id number] 19:35:00* Test Item Value Reference Range Interpretation [...] 32.9 g/dL 31.6-35.1 RDW-SD (test code = 52827-5) 47.8 fL 39-49.9 RDW-CV (test code = 788-0) 13.5 % 12-15.5 PLT (test code = 777-3) See_Comment H [Automated CreationFlowa ge] The system which generated this result transmitted reference range: 166 - 358 10*3/?L. The reference range was not used to interpret this result as normal/abnormal. MPV (test code = 92153-3) 9.2 fL 9.5-12.9 L NRBC/100 WBC (test code = 4118501621) See_Comment [Automated Kontagent ssage] The system which generated this result transmitted reference range: 0.0 - 10.0 /100 WBCs. The reference range was not used to interpret this result as normal/abnormal. NRBC x10^3 (test code = 6386951892) <0.01 See_Comment [Automated CreationFlowa ge] The system which generated this result transmitted reference range: 10*3/?L. The reference range was not used to interpret this result as normal/abnormal. GRAN MAT (NEUT) % (test code = 770-8) 55.8 % IMM GRAN % (test code = 5835263902) 0.20 % LYMPH % (test code = 736-9) 32.6 % MONO % (test code = 5905-5) 8.3 % EOS % (test code = 713-8) 2.1 % BASO % (test code = 706-2) 1.0 % GRAN MAT x10^3(ANC) (test code = 1136381172) 3.23 10*3/uL 1.88-7.09 IMM GRAN x10^3 (test code = 6164935243) <0.03 0-0.06 LYMPH x10^3 (test code = 731-0) 1.89 10*3/uL 1.32-3.29 MONO x10^3 (test code = 742-7) 0.48 10*3/uL 0.33-0.92 EOS x10^3 (test code = 711-2) 0.12 10*3/uL 0.03-0.39 BASO x10^3 (test code = 704-7) 0.06 10*3/uL 0.01-0.07 Lab Interpretation (test code = 19984-2) Abnormal [facility] CenterUS ABDOMEN [id number] 18:44:20HISTORY: ? Abdominal pain. TECHNIQUE: Upper abdominal [...] gallbladder lumen could be sign of dysfunctioninggallbladder. [facility], Radiant Results Inft User - 08/04/2019 [...] the gallbladder lumen could be sign of dysfunctioninggallbladder.[facility] CHEST 2 2019-08-04 18:10:22HISTORY: Localized [...] CONCLUSIONS: No signs of acute cardiopul monary disease.[facility], Radiant Results Inft User - 08/04/2019 1:11 [...] cardiac size.CONCLUSIONS: No signs of acute cardiopulmonary disease.[facility] CERVICAL SPINE 2 [id number] 18:09:25HISTORY: Anesthesia of skin. FINDINGS: AP and [...] disc disease anduncovertebral joint degenerative diseaseat C5-C6. [facility], Radiant Results Inft User - 08/04/2019 [...] disc disease anduncovertebral joint degenerative diseaseat C5-C6. [facility]
[2024-04-11] MEDS ORDERED: HYDROCODONE/APAP 7.5/325 MG TAB ONE (09:43)
[2024-04-11] MEDS ORDERED: IBUPROFEN 400 MG TAB ONE (09:43)
[2024-04-11] MEDS ORDERED: ACETAMINOPHEN 500 MG TAB ONE (09:43)
--- NOTE | 2024-04-11 10:53 | EDPHYS ---
Physician Documentation [facility] Name: Jemima Portillo Age: 63 yrs Sex: Female : 1960 Arrival Date: 04/11/2024 Time: 09:08 Bed 15 Private MD: ED Physician Estelle Yarbrough HPI: 04/11 09:40 This 63 yrs old Female presents to ER via Wheelchair with complaints of Knee Injury. cp 09:40 The patient presents with an injury, pain, that is acute. The complaints affect the cp right knee. Context: resulted from the patient falling, the patient is able to ambulate, with moderate difficulty. Onset: The symptoms/episode began/occurred yesterday. Associated signs and symptoms: The patient has no apparent associated signs or symptoms. 09:40 Patient reports slip and fall last night. [place] right knee "pop". cp Historical: - Allergies: 09:30 tequin; rs5 09:30 Codeine; rs5 - PMHx: 09:30 Hypertensive disorder; rs5 - PSHx: 09:30 hysterectomy; L kidney surgery; R shoulder repair tendon; rs5 - Immunization history:: Adult Immunizations up to date. - Infectious Disease History:: Denies. - Social history:: Smoking status: Patient denies any tobacco usage or history of. ROS: 09:43 MS/extremity: Positive for injury or acute deformity, pain, swelling, tenderness, of cp the right knee, Negative for decreased range of motion, 09:43 Constitutional: Negative for body aches, chills, fever, cp 09:43 Neck: Negative for pain with movement, pain at rest, 09:43 Back: Negative for pain at rest, pain with movement, 09:43 Neuro: Negative for altered mental status, loss of consciousness, numbness, syncope, 09:43 All other systems are negative, Exam: 09:47 Constitutional: The patient appears in no acute distress, alert, awake, well developed, cp well nourished, uncomfortable, 09:47 Head/Face: Normocephalic, atraumatic. cp 09:47 Neck: ROM/movement: is normal, is supple, without pain, no range of motions limitations, 09:47 Chest/axilla: Inspection: normal, 09:47 Cardiovascular: Rate: normal, 09:47 Respiratory: the patient does not display signs of respiratory distress, Respirations: normal, no use of accessory muscles, 09:47 Back: pain, is absent, ROM is normal, 09:47 Musculoskeletal/extremity: Extremities: noted in the right knee: medial side pain and tenderness, mild swelling, pain with valgus stress test, ROM: limited passive range of motion due to pain, in the right knee, Perfusion: the extremity is normally perfused throughout, the right leg Sensation intact. 09:47 Skin: cellulitis, is not appreciated, no rash present. 09:47 Neuro: Orientation: to person, place \\T\\ time. Mentation: is normal, Vital Signs: 09:29 BP 130 / 63; Pulse 70; Resp 17; Temp 98; Pulse Ox 99% on R/A; rs5 11:37 BP 134 / 67; Pulse 74; Resp 17; Pulse Ox 99% on R/A; rs5 MDM: 09:23 Medical Screening Exam initiated cp 10:52 Data reviewed: vital signs, nurses notes, radiologic studies, plain films, and as a cp result, I will discharge patient. 04/11 09:36 Order name: XRAY Knee RIGHT 3 view cp Administered Medications: 09:47 Drug: Ibuprofen PO 800 mg PO once Route: PO; rs5 11:01 Follow up: Response: No adverse reaction; Pain is decreased rs5 09:47 Drug: Hydrocodone-Acetaminophen PO (7.5 mg-325 mg) 1 tabs PO once; RASS on ADMIN: rs5 Combtv4, Very Agttd3, Agttd2, Rstlss1, AlertClm0, Drwsy-1, Lt Sdtn-2, Mod Sdtn-3, Dp Sdtn-4, UnArsble-5 Route: PO; 11:01 Follow up: Response: No adverse reaction; Pain is decreased rs5 09:47 Drug: Acetaminophen PO 500 mg PO once Route: PO; rs5 11:01 Follow up: Response: No adverse reaction; Pain is decreased rs5 10:59 Drug: Promethazine PO 25 mg PO once Route: PO; rs5 11:30 Follow up: Response: No adverse reaction; Nausea is decreased rs5 Disposition Summary: 04/11/24 10:52 Discharge Ordered Notes: Location: Home cp Problem: new cp Symptoms: have improved cp Condition: Stable cp Diagnosis - Sprain of medial collateral ligament of right knee cp Followup: cp - With: Magdiel So MD - When: 5 - 6 days - Reason: Recheck today's complaints Discharge Instructions: - Discharge Summary Sheet cp - Knee Sprain, Adult cp Forms: - Medication Reconciliation Form cp - Antibiotic Education cp - Prescription Opioid Use cp - Patient Portal Instructions cp - Leadership Thank You Letter cp Prescriptions: - Tramadol 50 mg Oral Tablet - take 1 tablet ORAL route every 8 hours as needed; 12 tablet; Refills: 0, cp Product Selection Permitted Signatures: Dispatcher [employer] EDMS Paxton Ontiveros PA PA cp Antonio Marino, RN RN rs5
--- NOTE | 2024-04-11 10:53 | ER ---
Nurse's Notes [facility] Name: Jemima Portillo Age: 63 yrs Sex: Female : 1960 Arrival Date: 04/11/2024 Time: 09:08 Bed 15 Private MD: Diagnosis: Sprain of medial collateral ligament of right knee Presentation: 04/11 09:29 Chief complaint: Patient states: Slipped last night, fell and felt right knee pop. rs5 Complains of pain to right knee. Coronavirus screen: At this time, the client does not indicate any symptoms associated with coronavirus-19. Ebola Screen: No symptoms or risks identified at this time. Initial Sepsis Screen: Does the patient meet any 2 criteria? No. Patient's initial sepsis screen is negative. Does the patient have a suspected source of infection? No. Patient's initial sepsis screen is negative. Risk Assessment: Do you want to hurt yourself or someone else? Patient reports no desire to harm self or others. Onset of symptoms was April 10, 2024. 09:29 Method Of Arrival: Wheelchair rs5 09:29 Acuity: MYLA 3 rs5 Historical: - Allergies: 09:30 tequin; rs5 09:30 Codeine; rs5 - PMHx: 09:30 Hypertensive disorder; rs5 - PSHx: 09:30 hysterectomy; L kidney surgery; R shoulder repair tendon; rs5 - Immunization history:: Adult Immunizations up to date. - Infectious Disease History:: Denies. - Social history:: Smoking status: Patient denies any tobacco usage or history of. Screenin:31 [facility] ED Fall Risk Assessment (Adult) History of falling in the last 3 months, rs5 including since admission Yes- single mechanical fall (1 pt) Confusion or Disorientation No (0 pts) Intoxicated or Sedated No (0 pts) Impaired Gait Yes (1 pt) Mobility Assist Device Used Yes (1 pt) Altered Elimination No (0 pt) Score/Fall Risk Level 3 or more points = High Risk Oriented to surroundings, Maintained a safe environment, Hourly rounding (assess needs \T\ fall precautionary measures) done. Abuse screen: Denies threats or abuse. Nutritional screening: No deficits noted. Tuberculosis screening: No symptoms or risk factors identified. Assessment: 09:32 General: Appears in no apparent distress. uncomfortable, Behavior is cooperative. Pain: rs5 Complains of pain in right knee Pain currently is 8 out of 10 on a pain scale. Quality of pain is described as aching, Is continuous. Neuro: Level of Consciousness is awake, alert, obeys commands, Oriented to person, place, time, situation. Cardiovascular: Patient's skin is warm and dry. Respiratory: Airway is patent Respiratory effort is even, unlabored, Respiratory pattern is regular, symmetrical. GI: Abdomen is round non-distended, Abd is soft and non tender X 4 quads. : No signs and/or symptoms were reported regarding the genitourinary system. EENT: No signs and/or symptoms were reported regarding the EENT system. Derm: Skin is intact, Skin is pink, warm \T\ dry. Musculoskeletal: Range of motion: limited in right knee. 10:25 Reassessment: Patient and/or family updated on plan of care and expected duration. Pain rs5 level reassessed. Patient is alert, oriented x 3, equal unlabored respirations, skin warm/dry/pink. 11:37 Reassessment: Patient and/or family updated on plan of care and expected duration. Pain rs5 level reassessed. Patient is alert, oriented x 3, equal unlabored respirations, skin warm/dry/pink. Vital Signs: 09:29 BP 130 / 63; Pulse 70; Resp 17; Temp 98; Pulse Ox 99% on R/A; rs5 11:37 BP 134 / 67; Pulse 74; Resp 17; Pulse Ox 99% on R/A; rs5 ED Course: 09:13 Patient arrived in ED. al6 09:13 Paxton Ontiveros PA is PHCP. cp 09:14 Estelle Yarbrough MD is Attending Physician. cp 09:23 Antonio Marino, ANTONIO is Primary Nurse. rs5 09:30 Triage completed. rs5 09:30 No provider procedures requiring assistance completed. rs5 09:31 Patient has correct armband on for positive identification. Bed in low position. Call rs5 light in reach. Side rails up X2. 10:43 XRAY Knee RIGHT 3 view In Process Unspecified. EDMS 10:51 Magdiel So MD is Referral Physician. cp 11:37 Provided Education on: discharge instructions . rs5 11:40 Patient did not have IV access during this emergency room visit. rs5 Administered Medications: 09:47 Drug: Ibuprofen PO 800 mg PO once Route: PO; rs5 11:01 Follow up: Response: No adverse reaction; Pain is decreased rs5 09:47 Drug: Hydrocodone-Acetaminophen PO (7.5 mg-325 mg) 1 tabs PO once; RASS on ADMIN: rs5 Combtv4, Very Agttd3, Agttd2, Rstlss1, AlertClm0, Drwsy-1, Lt Sdtn-2, Mod Sdtn-3, Dp Sdtn-4, UnArsble-5 Route: PO; 11:01 Follow up: Response: No adverse reaction; Pain is decreased rs5 09:47 Drug: Acetaminophen PO 500 mg PO once Route: PO; rs5 11:01 Follow up: Response: No adverse reaction; Pain is decreased rs5 10:59 Drug: Promethazine PO 25 mg PO once Route: PO; rs5 11:30 Follow up: Response: No adverse reaction; Nausea is decreased rs5 Medication: 09:32 VIS not applicable for this client. rs5 Outcome: 10:52 Discharge ordered by . cp 11:40 Discharged to home via wheelchair, with family, rs5 11:40 Condition: stable rs5 11:40 Discharge instructions given to patient, family, Instructed on discharge instructions, follow up and referral plans. medication usage, Demonstrated understanding of instructions, follow-up care, medications, 11:44 Patient left the ED. rs5 Signatures: Dispatcher [employer] EDMS Paxton Ontiveros PA PA cp Sotelo, Ricky RN RN rs5 Jenny Burnette
[2024-04-11] MEDS ORDERED: PROMETHAZINE 25 MG TABLET ONE (10:54)
--- NOTE | 2024-04-11 12:31 | RAD REPORT ---
EXAM: XR Knee Right 3 View HISTORY: [facility] MAIN PAIN Bed Name: 15 COMPARISON: None TECHNIQUE: 3 views of the right knee were obtained. FINDINGS: No knee effusion is seen. There is no evidence of acute fracture or dislocation. No signif icant degenerative changes are seen. No soft tissue swelling or other soft tissue abnormality is present. IMPRESSION: No evidence of acute osseous abnormality.
[2024-04-14 15:16] VITALS: BP 130/63; TEMP 98; O2SAT 99
== END 2024-04-11 11:44 | disposition home or self-care (01) ==
LOC: ER 09:08
DX: S83.411A Sprain of medial collateral ligament of right knee, initial encounter (principal); W01.0XXA Fall on same level from slipping, tripping and stumbling without subsequent striking against object, initial encounter; I10 Essential (primary) hypertension; Z88.5 Allergy status to narcotic agent; Z88.8 Allergy status to other drugs, medicaments and biological substances
CPT/HCPCS: 73562; 99283; Q0169